=== PATIENT | male | born 1980 | race Two or more races ===

== ENCOUNTER 2017-04-08 08:16 | Inpatient (IN) | payer SELFPAY ==
[~2017-04-08] VITALS: Ht 157.5 cm; Wt 59.4 kg
[2017-04-08] MEDS ORDERED: FAMOTIDINE 20 MG/2 ML VIAL IVP ONE (08:45)
[2017-04-08] MEDS ORDERED: ONDANSETRON PF 4 MG/2 ML VIAL. IV ONE (08:45)
[2017-04-08] MEDS ORDERED: DICYCLOMINE HCL 10 MG CAPSULE PO ONE (08:45)
[2017-04-08] MEDS ORDERED: KETOROLAC 30 MG/ML INJ. IV ONE (08:45)
[2017-04-08] MEDS ORDERED: IV NORMAL SALINE 1000ML BAG 1,000 ML IV ONE ×2 (08:45→11:00)
--- NOTE | 2017-04-08 08:45 | PHYS DOC ---
Adult General Chief Complaint Chief Complaint: ABDOMINAL PAIN HPI HPI Patient is a 36 year old Bangladeshi-speaking male who presents with lower abdominal pain rated at 9 out of 10, constant in nature that began yesterday. Patient is also complaining of diarrhea. Denies any fever. Denies any melena, nausea or vomiting. Denies any sick contacts at home. Denies any hematuria urgency frequency dysuria. Patient states the pain is so severe he is not able to climb into bed. His friend had to get him into bed. 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 Review of Systems Review of Systems Constitutional: Denies fever or chills [] Eyes: Denies change in visual acuity, redness, or eye pain [] HENT: Denies nasal congestion or sore throat [] Respiratory: Denies cough or shortness of breath [] Cardiovascular: No additional information not addressed in HPI [] GI: lower abdominal pain with diarrhea,denies nausea, vomiting : Denies dysuria or hematuria [] Musculoskeletal: Denies back pain or joint pain [] Integument: Denies rash or skin lesions [] Neurologic: Denies headache, focal weakness or sensory changes [] All other systems were reviewed and found to be within normal limits, except as documented in this note. Current Medications Current Medications Current Medications Medications (Trade) Dose Ordered Sig/Modesta Start Time Stop Time Status Last Admin Dose Admin Dicyclomine HCl (Bentyl) 20 mg 1X ONCE 04/08/17 08:45 04/08/17 08:52 DC 04/08/17 09:01 20 MG Famotidine (Pepcid Vial) 20 mg 1X ONCE 04/08/17 08:45 04/08/17 08:52 DC 04/08/17 09:00 20 MG Info (Do NOT chart on this entry -- for MONITORING) 1 each PRN DAILY PRN 04/08/17 10:15 04/10/17 10:14 Iohexol (Omnipaque 300 Mg/ml) 75 ml 1X ONCE 04/08/17 10:00 04/08/17 10:01 DC 04/08/17 10:08 75 ML Ketorolac Tromethamine (Toradol) 30 mg 1X ONCE 04/08/17 08:45 04/08/17 08:52 DC 04/08/17 09:00 30 MG Morphine Sulfate 5 mg 1X ONCE 04/08/17 11:00 04/08/17 11:01 DC Ondansetron HCl (Zofran) 4 mg 1X ONCE 04/08/17 08:45 04/08/17 08:52 DC 04/08/17 09:01 4 MG Piperacillin Sod/ Tazobactam Sod (Zosyn) 3.375 gm 1X ONCE 04/08/17 11:30 04/08/17 11:31 Piperacillin Sod/ Tazobactam Sod 3.375 gm/Dextrose 50 ml @ 100 mls/hr 1X ONCE 04/08/17 11:00 04/08/17 11:29 UNV Sodium Chloride 1,000 ml @ 125 mls/hr 1X ONCE 04/08/17 11:00 04/08/17 18:59 Allergies Allergies Allergies Coded Allergies Type Severity Reaction Last Updated Verified No Known Drug Allergies 04/08/17 No Physical Exam Physical Exam Constitutional: Well developed, well nourished, no acute distress, non-toxic appearance. [] HENT: Normocephalic, atraumatic, bilateral external ears normal, oropharynx moist, no oral exudates, nose normal. [] Eyes: PERRLA, EOMI, conjunctiva normal, no discharge. [] Neck: Normal range of motion, no tenderness, supple, no stridor. [] Cardiovascular:Heart rate regular rhythm, no murmur [] Lungs & Thorax: Bilateral breath sounds clear to auscultation [] Abdomen: Bowel sounds normal, soft, moderate tenderness to bilateral lower abdomen worse on the right lower quadrant and mid abdomen. Positive psoas sign. Positive obturator sign. Patient is guarding the lower abdomen. No right upper quadrant tenderness., no masses, no pulsatile masses. [] Skin: Warm, dry, no erythema, no rash. [] Back: No tenderness, no CVA tenderness. [] Extremities: No tenderness, no cyanosis, no clubbing, ROM intact, no edema. [] Neurologic: Alert and oriented X 3, normal motor function, normal sensory function, no focal deficits noted. [] Psychologic: Affect normal, judgement normal, mood normal. [] Current Patient Data Vital Signs Vital Signs Date Time Temp Pulse Resp B/P (MAP) Pulse Ox O2 Delivery O2 Flow Rate FiO2 04/08/17 09:45 66 20 116/67 (83) 98 Room Air 04/08/17 08:42 99.5 99.5 Lab Values Laboratory Tests Test 04/08/17 08:28 04/08/17 08:53 Urine Collection Type Unknown Urine Color Yellow Urine Clarity Clear Urine pH 7.0 Urine Specific [place] >=1.030 Urine Protein 30 mg/dL (NEG-TRACE) Urine Glucose (UA) Negative mg/dL (NEG) Urine Ketones (Stick) Negative mg/dL (NEG) Urine Blood Negative (NEG) Urine Nitrite Negative (NEG) Urine Bilirubin Negative (NEG) Urine Urobilinogen Dipstick 0.2 mg/dL (0.2 mg/dL) Urine Leukocyte Esterase Negative (NEG) Urine RBC 0 /HPF (0-2) Urine WBC 0 /HPF (0-4) Urine Bacteria Few /HPF (0-FEW) Urine Mucus Marked /LPF Urine Opiates Screen Neg (NEG) Urine Methadone Screen Neg (NEG) Urine Barbiturates Neg (NEG) Urine Phencyclidine Screen Neg (NEG) Urine Amphetamine/Methamphetamine Neg (NEG) Urine Benzodiazepines Screen Neg (NEG) Urine Cocaine Screen Neg (NEG) Urine Cannabinoids Screen Neg (NEG) Urine Ethyl Alcohol Neg (NEG) White Blood Count 17.4 x10^3/uL (4.0-11.0) H Red Blood Count 5.34 x10^6/uL (4.30-5.70) Hemoglobin 16.3 g/dL (13.0-17.5) Hematocrit 48.7 % (39.0-53.0) Mean Corpuscular Volume 91 fL (79-100) Mean Corpuscular Hemoglobin 31 pg (25-35) Mean Corpuscular Hemoglobin Concent 34 g/dL (31-37) Red Cell Distribution Width 12.9 % (11.5-14.5) Platelet Count 222 x10^3/uL (140-400) Neutrophils (%) (Auto) 81 % (31-73) H Lymphocytes (%) (Auto) 10 % (24-48) L Monocytes (%) (Auto) 9 % (0-9) Eosinophils (%) (Auto) 0 % (0-3) Basophils (%) (Auto) 1 % (0-3) Neutrophils # (Auto) 14.1 x10^3uL (1.8-7.7) H Lymphocytes # (Auto) 1.7 x10^3/uL (1.0-4.8) Monocytes # (Auto) 1.5 x10^3/uL (0.0-1.1) H Eosinophils # (Auto) 0.1 x10^3/uL (0.0-0.7) Basophils # (Auto) 0.1 x10^3/uL (0.0-0.2) Segmented Neutrophils % 75 % (35-66) H Band Neutrophils % 6 % (0-9) Lymphocytes % 11 % (24-48) L Monocytes % 8 % (0-10) Platelet Estimate Adequate (ADEQUATE) Large Platelets Few Sodium Level 138 mmol/L (136-145) Potassium Level 3.8 mmol/L (3.5-5.1) Chloride Level 99 mmol/L (98-107) Carbon Dioxide Level 24 mmol/L (21-32) Anion Gap 15 (6-14) H Blood Urea Nitrogen 18 mg/dL (8-26) Creatinine 0.7 mg/dL (0.7-1.3) Estimated GFR (Cockcroft-Gault) 128.3 BUN/Creatinine Ratio 26 (6-20) H Glucose Level 116 mg/dL (70-99) H Calcium Level 8.9 mg/dL (8.5-10.1) Total Bilirubin 1.7 mg/dL (0.2-1.0) H Aspartate Amino Transferase (AST) 22 U/L (15-37) Alanine Aminotransferase (ALT) 36 U/L (16-63) Alkaline Phosphatase 138 U/L (46-116) H Total Protein 8.6 g/dL (6.4-8.2) H Albumin 4.1 g/dL (3.4-5.0) Albumin/Globulin Ratio 0.9 (1.0-1.7) L Lipase 89 U/L (73-393) Ethyl Alcohol Level < 10 mg/dL (0-10) Laboratory Tests 04/08/17 08:53 Laboratory Tests 04/08/17 08:53 EKG EKG [] Radiology/Procedures Radiology/Procedures []PROCEDURE: CT ABD PELV W/ IV CONTRST ONLY CT of the abdomen and pelvis with contrast, 04/08/2017: History: Abdominal pain Multidetector CT imaging was performed following an IV bolus injection of iodinated contrast material. No oral contrast material was administered for this study. No hepatic abnormality is seen. The gallbladder is unremarkable. The pancreas shows no abnormality. The spleen is of normal size. No renal or adrenal abnormality is detected. There is a 3.4 cm fluid collection containing several air bubbles in the upper pelvis on the right. It appears to be contiguous with the lower end of the appendix which contains an 8 mm appendicolith. From the level of the appendicolith to the base of the cecum the presumed appendix measures 9 to 10 mm in width. There is mild adjacent streaky increased density in the mesentery compatible with inflammation and fluid. There is a tiny amount of free fluid in the deep pelvis. The appearance is that of acute appendicitis with probable rupture and developing abscess. The bowel loops are not dilated. No free air is evident in the abdomen or pelvis. IMPRESSION: Acute appendicitis with an appendicolith and probable rupture as described above. PQRS Compliance Statement: One or more of the following individualized dose reduction techniques were utilized for this examination: 1. Automated exposure control 2. Adjustment of the mA and/or kV according to patient size 3. Use of iterative reconstruction technique DICTATED and SIGNED BY: TIMA LI MD DATE: 04/08/17 1022 CC: FAUSTINA OWEN APRN; NO PCP; NON,STAFF ~ Course & Med Decision Making Course & Med Decision Making Pertinent Labs and Imaging studies reviewed. (See chart for details) This is a 36-year-old male patient presented to the ED today with lower abdominal pain with slight diarrhea that began yesterday. CBC with a WBC of 17.4 and a left shift. CMP with bilirubin 1.7, alkaline phosphatase of 138. CT of the abdomen and pelvic with IV contrast was noted for acute appendicitis with probable rupture and developing abscess. 10:[address] Wallace who requested we start patient on antibiotics, consult [facility] for admission. Patient was started on Zosyn and Continued IV 11:[address] Mccabe who accepted patient for admission. Patient given results using accredited legal secretary line. He was stable upon admission. Dragon Disclaimer Dragon Disclaimer This electronic medical record was generated, in whole or in part, using a voice recognition dictation system. Departure Departure Impression: Primary Impression: Acute appendicitis with rupture Disposition: ADMITTED INPATIENT Condition: STABLE FAUSTINA OWEN APRN Apr 08, 2017 08:45
[2017-04-08 08:59] LABS: BASO # 0.1 x10^3/uL (0.0-0.2); BASO % 1 % (0-3); EOS % 0 % (0-3); HEMATOCRIT 48.7 % (39.0-53.0); HEMOGLOBIN 16.3 g/dL (13.0-17.5); LYMPH # 1.7 x10^3/uL (1.0-4.8); LYMPH % 10 % (24-48); MEAN CORPUSCULAR HEMOGLOBIN 31 pg (25-35); MEAN CORPUSCULAR HGB CONC 34 g/dL (31-37); MEAN CORPUSCULAR VOLUME 91 fL (79-100); MONO % 9 % (0-9); NEUT % 81 % (31-73); PLATELET COUNT 222 x10^3/uL (140-400); RED BLOOD COUNT 5.34 x10^6/uL (4.30-5.70); RED CELL DISTRIBUTION WIDTH 12.9 % (11.5-14.5); WHITE BLOOD COUNT 17.4 x10^3/uL (4.0-11.0)
[2017-04-08 09:00] LABS: BILIRUBIN,URINE NEGATIVE (NEG); GLUCOSE,URINE NEGATIVE (NEG); NITRITE,URINE NEGATIVE (NEG); PROTEIN,URINE 30 mg/dL (NEG-TRACE); UROBILINOGEN,URINE 0.2 mg/dL (0.2 mg/dL)
[2017-04-08 09:03] LABS: BARBITURATES NEG (NEG); BENZODIAZEPINES NEG (NEG); CANNABINOIDS NEG (NEG); COCAINE NEG (NEG); METHADONE NEG (NEG); OPIATES NEG (NEG); PHENCYCLIDINE NEG (NEG)
[2017-04-08 09:12] LABS: BACTERIA,URINE FEW /HPF (0-FEW); RBC,URINE 0 /HPF (0-2); WBC,URINE 0 /HPF (0-4)
[2017-04-08 09:13] LABS: CALCIUM 8.9 mg/dL (8.5-10.1); CREATININE 0.7 mg/dL (0.7-1.3); GFR 128.3; POTASSIUM 3.8 mmol/L (3.5-5.1)
[2017-04-08 09:19] LABS: ALBUMIN 4.1 g/dL (3.4-5.0); ALBUMIN/GLOBULIN RATIO 0.9 (1.0-1.7); TOTAL BILIRUBIN 1.7 mg/dL (0.2-1.0); TOTAL PROTEIN 8.6 g/dL (6.4-8.2)
[2017-04-08 09:38] LABS: PLT ESTIMATE ADEQUATE (ADEQUATE)
[2017-04-08] MEDS ORDERED: IOHEXOL 300 MG/ML 100ML VIAL. IV ONE (10:00)
[2017-04-08] MEDS ORDERED: CONTRAST GIVEN MC PRN (10:15)
--- NOTE | 2017-04-08 10:37 | RAD ---
CT of the abdomen and pelvis with contrast, 04/08/2017: History: Abdominal pain Multidetector CT imaging was performed following an IV bolus injection of iodinated contrast material. No oral contrast material was administered for this study. No hepatic abnormality is seen. The gallbladder is unremarkable. The pancreas shows no abnormality. The spleen is of normal size. No renal or adrenal abnormality is detected. There is a 3.4 cm fluid collection containing several air bubbles in the upper pelvis on the right. It appears to be contiguous with the lower end of the appendix which contains an 8 mm appendicolith. From the level of the appendicolith to the base of the cecum the presumed appendix measures 9 to 10 mm in width. There is mild adjacent streaky increased density in the mesentery compatible with inflammation and fluid. There is a tiny amount of free fluid in the deep pelvis. The appearance is that of acute appendicitis with probable rupture and developing abscess. The bowel loops are not dilated. No free air is evident in the abdomen or pelvis. IMPRESSION: Acute appendicitis with an appendicolith and probable rupture as described above. PQRS Compliance Statement: One or more of the following individualized dose reduction techniques were utilized for this examination: 1. Automated exposure control 2. Adjustment of the mA and/or kV according to patient size 3. Use of iterative reconstruction technique
[2017-04-08] MEDS ORDERED: MORPHINE SULFATE 10 MG/ML VIAL. IV ONE (11:00)
[2017-04-08] MEDS ORDERED: PIPERACILLIN/TAZOBACTAM 3.375 GM in IV DEXTROSE 5% 50 ML IV ONE (11:00)
[2017-04-08] MEDS ORDERED: ONDANSETRON PF 4 MG/2 ML VIAL. IV PRN ×3 (11:30→20:15)
[2017-04-08] MEDS ORDERED: PIPERACILLIN/TAZO IV Push 3.375 GM VIAL. IVP ONE (11:30)
[2017-04-08] MEDS ORDERED: fentaNYL PF VIAL 100 MCG/2 ML VIAL IV PRN ×3 (12:00→19:30)
[2017-04-08] MEDS ORDERED: KETOROLAC 15 MG/ML VIAL. IV PRN (12:00)
--- NOTE | 2017-04-08 12:20 | PDOC2 ---
KARINA JACINTO MISSION ANALYST 04/08/17 1220: CONSULT Date of Consult Date of Consult DATE: 04/08/17 TIME: 12:15 Reason for Consult Reason for Consult: appendicitis Referring Physician Referring Physician: ER Identification/Chief Complaint Chief Complaint abdominal pain Problems: Source Source: Chart review, Patient History of Present Illness Reason for Visit: I spoke with patient via editor map phone. Reports acute onset of RLQ pain last night. Had diarrhea last night. Significant pain, impeding walking, eating, etc. + Chills, no n/v. No similar pain in past Past Medical History Past Medical History no significant medical hx Past Surgical History Past Surgical History: No pertinent history Family History Family History: Other (noncontributory to current illness ) Social History No ALCOHOL: none Drugs: None Lives: with Family Current Problem List Problem List Problems Medical Problems: (1) Acute appendicitis with rupture Status: Acute Current Medications Current Medications Current Medications Famotidine (Pepcid Vial) 20 mg 1X ONCE IVP Last administered on 04/08/17 09: 00; Start 04/08/17 at 08:45; Stop 04/08/17 at 08:52; Status DC Ondansetron HCl (Zofran) 4 mg 1X ONCE IV Last administered on 04/08/17 09:01 ; Start 04/08/17 at 08:45; Stop 04/08/17 at 08:52; Status DC Ketorolac Tromethamine (Toradol) 30 mg 1X ONCE IV Last administered on 09:00; Start 04/08/17 at 08:45; Stop 04/08/17 at 08:52; Status DC Sodium Chloride 1,000 ml @ 1,000 mls/hr 1X ONCE IV Last administered on 04/08 09:00; Start 04/08/17 at 08:45; Stop 04/08/17 at 09:44; Status DC Dicyclomine HCl (Bentyl) 20 mg 1X ONCE PO Last administered on 04/08/17 09: 01; Start 04/08/17 at 08:45; Stop 04/08/17 at 08:52; Status DC Iohexol (Omnipaque 300 Mg/ml) 75 ml 1X ONCE IV Last administered on 10:08; Start 04/08/17 at 10:00; Stop 04/08/17 at 10:01; Status DC Info (Do NOT chart on this entry -- for MONITORING) 1 each PRN DAILY PRN MC SEE COMMENTS; Start 04/08/17 at 10:15; Stop 04/10/17 at 10:14 Morphine Sulfate 5 mg 1X ONCE IV Last administered on 04/08/17 11:26; Start 04/08/17 at 11:00; Stop 04/08/17 at 11:01; Status DC Piperacillin Sod/ Tazobactam Sod 3.375 gm/Dextrose 50 ml @ 100 mls/hr 1X ONCE IV ; Start 04/08/17 at 11:00; Stop 04/08/17 at 11:29; Status UNV Sodium Chloride 1,000 ml @ 125 mls/hr 1X ONCE IV Last administered on 11:28; Start 04/08/17 at 11:00; Stop 04/08/17 at 18:59 Piperacillin Sod/ Tazobactam Sod (Zosyn) 3.375 gm 1X ONCE IVP Last administered on 04/08/17 11:29; Start 04/08/17 at 11:30; Stop 04/08/17 at 11 :31; Status DC Ondansetron HCl (Zofran) 4 mg PRN Q8HRS PRN IV NAUSEA/VOMITING; Start at 11:30; Stop 04/09/17 at 11:29 Morphine Sulfate 4 mg PRN Q2HR PRN IV PAIN; Start 04/08/17 at 11:30; Stop at 11:29 Piperacillin Sod/ Tazobactam Sod 4.5 gm/Dextrose 100 ml @ 200 mls/hr Q8HRS IV ; Start 04/08/17 at 14:00; Status UNV Fentanyl Citrate (Fentanyl 2ml Vial) 50 mcg Q2HR PRN IV pain; Start 04/08/17 at 12:00 Ketorolac Tromethamine (Toradol) 15 mg Q6HRS PRN IV pain; Start 04/08/17 at 12 :00; Stop 04/13/17 at 11:59 Acetaminophen (Tylenol) 650 mg TID PO ; Start 04/08/17 at 14:00; Stop at 09:00 Piperacillin Sod/ Tazobactam Sod (Zosyn) 3.375 gm Q6HRS IVP ; Start 04/08/17 at 18:00 Allergies Allergies: Coded Allergies: No Known Drug Allergies (Unverified , 04/08/17) ROS General: YES: Chills, Fatigue PSYCHOLOGICAL ROS: No: Anxiety, Depression Eyes: No Blurry vision, No Double vision HEENT: No: Heacaches, Sore Throat Hematological and Lymphatic: No: Bleeding Problems, Blood Clots Respiratory: No: Cough, Shortness of breath Cardiovascular: No Chest Pain, No Palpitations Gastrointestinal: Yes Other (see hpi) Genitourinary: No Dysuria, No Hematuria Musculoskeletal: No Joint Pain, No Muscle Pain Neurological: No Confusion, No Numbness/Tingling Skin: No Pruritus, No Rash Physical Exam General: Alert, Other (acutely ill appearing, active chills under exam) HEENT: PERRLA, Mucous membr. moist/pink Lungs: Clear to auscultation, Normal air movement Heart: Regular rate, Normal S1, Normal S2, No murmurs Abdomen: Soft, Other (severe ttp to RLQ, + rebound and guarding ) Extremities: No clubbing, No cyanosis Skin: No rashes, No breakdown Neuro: Normal gait, Normal speech Psych/Mental Status: Mental status NL, Mood NL MUSCULOSKELETAL: No deformity, No swelling Vitals VITALS Vital Signs Date Time Temp Pulse Resp B/P (MAP) Pulse Ox O2 Delivery O2 Flow Rate FiO2 04/08/17 11:26 Room Air 04/08/17 11:16 74 120/73 (89) 99 04/08/17 09:45 20 04/08/17 08:42 99.5 99.5 Labs Labs Laboratory Tests Test 04/08/17 08:28 04/08/17 08:53 Urine Collection Type Unknown Urine Color Yellow Urine Clarity Clear Urine pH 7.0 Urine Specific [place] >=1.030 Urine Protein 30 mg/dL (NEG-TRACE) Urine Glucose (UA) Negative mg/dL (NEG) Urine Ketones (Stick) Negative mg/dL (NEG) Urine Blood Negative (NEG) Urine Nitrite Negative (NEG) Urine Bilirubin Negative (NEG) Urine Urobilinogen Dipstick 0.2 mg/dL (0.2 mg/dL) Urine Leukocyte Esterase Negative (NEG) Urine RBC 0 /HPF (0-2) Urine WBC 0 /HPF (0-4) Urine Bacteria Few /HPF (0-FEW) Urine Mucus Marked /LPF Urine Opiates Screen Neg (NEG) Urine Methadone Screen Neg (NEG) Urine Barbiturates Neg (NEG) Urine Phencyclidine Screen Neg (NEG) Urine Amphetamine/Methamphetamine Neg (NEG) Urine Benzodiazepines Screen Neg (NEG) Urine Cocaine Screen Neg (NEG) Urine Cannabinoids Screen Neg (NEG) Urine Ethyl Alcohol Neg (NEG) White Blood Count 17.4 x10^3/uL (4.0-11.0) Red Blood Count 5.34 x10^6/uL (4.30-5.70) Hemoglobin 16.3 g/dL (13.0-17.5) Hematocrit 48.7 % (39.0-53.0) Mean Corpuscular Volume 91 fL (79-100) Mean Corpuscular Hemoglobin 31 pg (25-35) Mean Corpuscular Hemoglobin Concent 34 g/dL (31-37) Red Cell Distribution Width 12.9 % (11.5-14.5) Platelet Count 222 x10^3/uL (140-400) Neutrophils (%) (Auto) 81 % (31-73) Lymphocytes (%) (Auto) 10 % (24-48) Monocytes (%) (Auto) 9 % (0-9) Eosinophils (%) (Auto) 0 % (0-3) Basophils (%) (Auto) 1 % (0-3) Neutrophils # (Auto) 14.1 x10^3uL (1.8-7.7) Lymphocytes # (Auto) 1.7 x10^3/uL (1.0-4.8) Monocytes # (Auto) 1.5 x10^3/uL (0.0-1.1) Eosinophils # (Auto) 0.1 x10^3/uL (0.0-0.7) Basophils # (Auto) 0.1 x10^3/uL (0.0-0.2) Segmented Neutrophils % 75 % (35-66) Band Neutrophils % 6 % (0-9) Lymphocytes % 11 % (24-48) Monocytes % 8 % (0-10) Platelet Estimate Adequate (ADEQUATE) Large Platelets Few Sodium Level 138 mmol/L (136-145) Potassium Level 3.8 mmol/L (3.5-5.1) Chloride Level 99 mmol/L (98-107) Carbon Dioxide Level 24 mmol/L (21-32) Anion Gap 15 (6-14) Blood Urea Nitrogen 18 mg/dL (8-26) Creatinine 0.7 mg/dL (0.7-1.3) Estimated GFR (Cockcroft-Gault) 128.3 BUN/Creatinine Ratio 26 (6-20) Glucose Level 116 mg/dL (70-99) Calcium Level 8.9 mg/dL (8.5-10.1) Total Bilirubin 1.7 mg/dL (0.2-1.0) Aspartate Amino Transf (AST/SGOT) 22 U/L (15-37) Alanine Aminotransferase (ALT/SGPT) 36 U/L (16-63) Alkaline Phosphatase 138 U/L (46-116) Total Protein 8.6 g/dL (6.4-8.2) Albumin 4.1 g/dL (3.4-5.0) Albumin/Globulin Ratio 0.9 (1.0-1.7) Lipase 89 U/L (73-393) Ethyl Alcohol Level < 10 mg/dL (0-10) Laboratory Tests Test 04/08/17 08:28 04/08/17 08:53 Urine Collection Type Unknown Urine Color Yellow Urine Clarity Clear Urine pH 7.0 Urine Specific [place] >=1.030 Urine Protein 30 mg/dL (NEG-TRACE) Urine Glucose (UA) Negative mg/dL (NEG) Urine Ketones (Stick) Negative mg/dL (NEG) Urine Blood Negative (NEG) Urine Nitrite Negative (NEG) Urine Bilirubin Negative (NEG) Urine Urobilinogen Dipstick 0.2 mg/dL (0.2 mg/dL) Urine Leukocyte Esterase Negative (NEG) Urine RBC 0 /HPF (0-2) Urine WBC 0 /HPF (0-4) Urine Bacteria Few /HPF (0-FEW) Urine Mucus Marked /LPF Urine Opiates Screen Neg (NEG) Urine Methadone Screen Neg (NEG) Urine Barbiturates Neg (NEG) Urine Phencyclidine Screen Neg (NEG) Urine Amphetamine/Methamphetamine Neg (NEG) Urine Benzodiazepines Screen Neg (NEG) Urine Cocaine Screen Neg (NEG) Urine Cannabinoids Screen Neg (NEG) Urine Ethyl Alcohol Neg (NEG) White Blood Count 17.4 x10^3/uL (4.0-11.0) Red Blood Count 5.34 x10^6/uL (4.30-5.70) Hemoglobin 16.3 g/dL (13.0-17.5) Hematocrit 48.7 % (39.0-53.0) Mean Corpuscular Volume 91 fL (79-100) Mean Corpuscular Hemoglobin 31 pg (25-35) Mean Corpuscular Hemoglobin Concent 34 g/dL (31-37) Red Cell Distribution Width 12.9 % (11.5-14.5) Platelet Count 222 x10^3/uL (140-400) Neutrophils (%) (Auto) 81 % (31-73) Lymphocytes (%) (Auto) 10 % (24-48) Monocytes (%) (Auto) 9 % (0-9) Eosinophils (%) (Auto) 0 % (0-3) Basophils (%) (Auto) 1 % (0-3) Neutrophils # (Auto) 14.1 x10^3uL (1.8-7.7) Lymphocytes # (Auto) 1.7 x10^3/uL (1.0-4.8) Monocytes # (Auto) 1.5 x10^3/uL (0.0-1.1) Eosinophils # (Auto) 0.1 x10^3/uL (0.0-0.7) Basophils # (Auto) 0.1 x10^3/uL (0.0-0.2) Segmented Neutrophils % 75 % (35-66) Band Neutrophils % 6 % (0-9) Lymphocytes % 11 % (24-48) Monocytes % 8 % (0-10) Platelet Estimate Adequate (ADEQUATE) Large Platelets Few Sodium Level 138 mmol/L (136-145) Potassium Level 3.8 mmol/L (3.5-5.1) Chloride Level 99 mmol/L (98-107) Carbon Dioxide Level 24 mmol/L (21-32) Anion Gap 15 (6-14) Blood Urea Nitrogen 18 mg/dL (8-26) Creatinine 0.7 mg/dL (0.7-1.3) Estimated GFR (Cockcroft-Gault) 128.3 BUN/Creatinine Ratio 26 (6-20) Glucose Level 116 mg/dL (70-99) Calcium Level 8.9 mg/dL (8.5-10.1) Total Bilirubin 1.7 mg/dL (0.2-1.0) Aspartate Amino Transf (AST/SGOT) 22 U/L (15-37) Alanine Aminotransferase (ALT/SGPT) 36 U/L (16-63) Alkaline Phosphatase 138 U/L (46-116) Total Protein 8.6 g/dL (6.4-8.2) Albumin 4.1 g/dL (3.4-5.0) Albumin/Globulin Ratio 0.9 (1.0-1.7) Lipase 89 U/L (73-393) Ethyl Alcohol Level < 10 mg/dL (0-10) Assessment/Plan Assessment/Plan ruptured appendicitis significant exam findings start IV abx, NPO I reviewed with Dr Wallace who will see patient today BERTHA WALLACE MD 04/08/17 4179: CONSULT Allergies Allergies: Coded Allergies: No Known Drug Allergies (Unverified , 04/08/17) Assessment/Plan Assessment/Plan Pt seen and examined. Agree with Ms. Jacinto's note Pt with TTP RUQ and RLQ, with peritoneal signs treated initially with IV abx and IVF resuscitation TO OR for laparoscopic versus open appendectomy d/w pt and pt's family high likely perforated appendix, complicated appendicitis with sepsis Thanks for consult! KARINA JACINTO APRN Apr 08, 2017 12:20 BERTHA WALLACE MD Apr 08, 2017 17:53
[2017-04-08 12:45] VITALS: BP 133/79
--- NOTE | 2017-04-08 12:45 | PDOC ---
Infectious Disease Note Vital Sign Vital Signs Vital Signs Date Time Temp Pulse Resp B/P (MAP) Pulse Ox O2 Delivery O2 Flow Rate FiO2 04/08/17 11:46 82 137/81 (99) 98 Room Air 04/08/17 09:45 20 04/08/17 08:42 99.5 99.5 Labs Lab Laboratory Tests Test 04/08/17 08:28 04/08/17 08:53 04/08/17 11:47 Urine Collection Type Unknown Urine Color Yellow Urine Clarity Clear Urine pH 7.0 Urine Specific [place] >=1.030 Urine Protein 30 mg/dL (NEG-TRACE) Urine Glucose (UA) Negative mg/dL (NEG) Urine Ketones (Stick) Negative mg/dL (NEG) Urine Blood Negative (NEG) Urine Nitrite Negative (NEG) Urine Bilirubin Negative (NEG) Urine Urobilinogen Dipstick 0.2 mg/dL (0.2 mg/dL) Urine Leukocyte Esterase Negative (NEG) Urine RBC 0 /HPF (0-2) Urine WBC 0 /HPF (0-4) Urine Bacteria Few /HPF (0-FEW) Urine Mucus Marked /LPF Urine Opiates Screen Neg (NEG) Urine Methadone Screen Neg (NEG) Urine Barbiturates Neg (NEG) Urine Phencyclidine Screen Neg (NEG) Urine Amphetamine/Methamphetamine Neg (NEG) Urine Benzodiazepines Screen Neg (NEG) Urine Cocaine Screen Neg (NEG) Urine Cannabinoids Screen Neg (NEG) Urine Ethyl Alcohol Neg (NEG) White Blood Count 17.4 x10^3/uL (4.0-11.0) Red Blood Count 5.34 x10^6/uL (4.30-5.70) Hemoglobin 16.3 g/dL (13.0-17.5) Hematocrit 48.7 % (39.0-53.0) Mean Corpuscular Volume 91 fL (79-100) Mean Corpuscular Hemoglobin 31 pg (25-35) Mean Corpuscular Hemoglobin Concent 34 g/dL (31-37) Red Cell Distribution Width 12.9 % (11.5-14.5) Platelet Count 222 x10^3/uL (140-400) Neutrophils (%) (Auto) 81 % (31-73) Lymphocytes (%) (Auto) 10 % (24-48) Monocytes (%) (Auto) 9 % (0-9) Eosinophils (%) (Auto) 0 % (0-3) Basophils (%) (Auto) 1 % (0-3) Neutrophils # (Auto) 14.1 x10^3uL (1.8-7.7) Lymphocytes # (Auto) 1.7 x10^3/uL (1.0-4.8) Monocytes # (Auto) 1.5 x10^3/uL (0.0-1.1) Eosinophils # (Auto) 0.1 x10^3/uL (0.0-0.7) Basophils # (Auto) 0.1 x10^3/uL (0.0-0.2) Segmented Neutrophils % 75 % (35-66) Band Neutrophils % 6 % (0-9) Lymphocytes % 11 % (24-48) Monocytes % 8 % (0-10) Platelet Estimate Adequate (ADEQUATE) Large Platelets Few Sodium Level 138 mmol/L (136-145) Potassium Level 3.8 mmol/L (3.5-5.1) Chloride Level 99 mmol/L (98-107) Carbon Dioxide Level 24 mmol/L (21-32) Anion Gap 15 (6-14) Blood Urea Nitrogen 18 mg/dL (8-26) Creatinine 0.7 mg/dL (0.7-1.3) Estimated GFR (Cockcroft-Gault) 128.3 BUN/Creatinine Ratio 26 (6-20) Glucose Level 116 mg/dL (70-99) Calcium Level 8.9 mg/dL (8.5-10.1) Total Bilirubin 1.7 mg/dL (0.2-1.0) Aspartate Amino Transf (AST/SGOT) 22 U/L (15-37) Alanine Aminotransferase (ALT/SGPT) 36 U/L (16-63) Alkaline Phosphatase 138 U/L (46-116) Total Protein 8.6 g/dL (6.4-8.2) Albumin 4.1 g/dL (3.4-5.0) Albumin/Globulin Ratio 0.9 (1.0-1.7) Lipase 89 U/L (73-393) Ethyl Alcohol Level < 10 mg/dL (0-10) Lactic Acid Level 0.9 mmol/L (0.4-2.0) Objective Assessment appendicitis with perforation Plan Plan of Care pt seen, consult dictated, thanks HERNAN WALL MD Apr 08, 2017 12:45
[2017-04-08] MEDS: MORPHINE SULFATE 4 MG/ML DISP.SYRIN. IV PRN ×4 (12:46→21:03)
[2017-04-08 13:00] VITALS: BP 142/80
[2017-04-08 14:00] VITALS: BP 140/69
[2017-04-08] MEDS ORDERED: PIPERACILLIN/TAZOBACTAM 4.5 GM in IV DEXTROSE 5% 100 ML IV SCH (14:00)
[2017-04-08] MEDS: ACETAMINOPHEN 325 MG TABLET. PO SCH ×2 (14:00→21:00)
[2017-04-08] MEDS: POTASSIUM CL 20MEQ D5-0.45NACL 1,000 ML IV SCH (14:51)
[2017-04-08 15:00] VITALS: BP 115/63
--- NOTE | 2017-04-08 15:07 | PDOC1 ---
History and Physical Date of Admission Date of Admission DATE: 04/08/17 TIME: 15:03 Identification/Chief Complaint Chief Complaint acute abd pain Problems: Source Source: Chart review, Patient History of Present Illness History of Present Illness Les ruffin 36 year old Hebrew-speaking male admit with acute lower abdominal pain rated at 9 out of 10, constant in nature that began last night. no nausea or vomiting, but some diarrhea X1 . Denies any fever. Denies any melena, nausea or vomiting. Denies any sick contacts or travel pain is tolerable unless he has to move, pain 10,10 if he has to sit up, Hi Past Medical History Cardiovascular: No pertinent hx Pulmonary: No pertinent hx GI: No pertinent hx Heme/Onc: No pertinent hx Hepatobiliary: No pertinent hx Psych: No pertinent hx ENT: No pertinent hx Renal/: No pertinent hx Past Surgical History Past Surgical History: No pertinent history Family History Family History: No Significant, Other (noncontributory to current illness ) Social History Smoke: No ALCOHOL: none Drugs: None Current Problem List Problem List Problems Medical Problems: (1) Acute appendicitis with rupture Status: Acute Problems: Current Medications Current Medications Current Medications Famotidine (Pepcid Vial) 20 mg 1X ONCE IVP Last administered on 04/08/17 09: 00; Start 04/08/17 at 08:45; Stop 04/08/17 at 08:52; Status DC Ondansetron HCl (Zofran) 4 mg 1X ONCE IV Last administered on 04/08/17 09:01 ; Start 04/08/17 at 08:45; Stop 04/08/17 at 08:52; Status DC Ketorolac Tromethamine (Toradol) 30 mg 1X ONCE IV Last administered on 09:00; Start 04/08/17 at 08:45; Stop 04/08/17 at 08:52; Status DC Sodium Chloride 1,000 ml @ 1,000 mls/hr 1X ONCE IV Last administered on 04/08 09:00; Start 04/08/17 at 08:45; Stop 04/08/17 at 09:44; Status DC Dicyclomine HCl (Bentyl) 20 mg 1X ONCE PO Last administered on 04/08/17 09: 01; Start 04/08/17 at 08:45; Stop 04/08/17 at 08:52; Status DC Iohexol (Omnipaque 300 Mg/ml) 75 ml 1X ONCE IV Last administered on 10:08; Start 04/08/17 at 10:00; Stop 04/08/17 at 10:01; Status DC Info (Do NOT chart on this entry -- for MONITORING) 1 each PRN DAILY PRN MC SEE COMMENTS; Start 04/08/17 at 10:15; Stop 04/10/17 at 10:14 Morphine Sulfate 5 mg 1X ONCE IV Last administered on 04/08/17 11:26; Start 04/08/17 at 11:00; Stop 04/08/17 at 11:01; Status DC Piperacillin Sod/ Tazobactam Sod 3.375 gm/Dextrose 50 ml @ 100 mls/hr 1X ONCE IV ; Start 04/08/17 at 11:00; Stop 04/08/17 at 11:29; Status UNV Sodium Chloride 1,000 ml @ 125 mls/hr 1X ONCE IV Last administered on 11:28; Start 04/08/17 at 11:00; Stop 04/08/17 at 18:59 Piperacillin Sod/ Tazobactam Sod (Zosyn) 3.375 gm 1X ONCE IVP Last administered on 04/08/17 11:29; Start 04/08/17 at 11:30; Stop 04/08/17 at 11 :31; Status DC Ondansetron HCl (Zofran) 4 mg PRN Q8HRS PRN IV NAUSEA/VOMITING Last administered on 04/08/17 14:50; Start 04/08/17 at 11:30; Stop 04/09/17 at 11 :29 Morphine Sulfate 4 mg PRN Q2HR PRN IV PAIN Last administered on 04/08/17 14: 50; Start 04/08/17 at 11:30; Stop 04/09/17 at 11:29 Piperacillin Sod/ Tazobactam Sod 4.5 gm/Dextrose 100 ml @ 200 mls/hr Q8HRS IV ; Start 04/08/17 at 14:00; Status UNV Fentanyl Citrate (Fentanyl 2ml Vial) 50 mcg Q2HR PRN IV pain; Start 04/08/17 at 12:00 Ketorolac Tromethamine (Toradol) 15 mg Q6HRS PRN IV pain; Start 04/08/17 at 12 :00; Stop 04/13/17 at 11:59 Acetaminophen (Tylenol) 650 mg TID PO ; Start 04/08/17 at 14:00; Stop at 09:00 Piperacillin Sod/ Tazobactam Sod (Zosyn) 3.375 gm Q6HRS IVP ; Start 04/08/17 at 18:00 Potassium Chloride/Dextrose/ Sod Cl 1,000 ml @ 125 mls/hr Q8H IV Last administered on 04/08/17t 14:51; Start 04/08/17 at 14:30 Allergies Allergies: Coded Allergies: No Known Drug Allergies (Unverified , 04/08/17) ROS General: No: Chills, Night Sweats, Fatigue, Malaise, Appetite, Other PSYCHOLOGICAL ROS: No: Anxiety, Behavioral Disorder, Concentration difficultie , Decreased libido, Depression, Disorientation, Hallucinations, Hostility, Irritablity, Memory difficulties, Mood Swings, Obsessive thoughts, Physical abuse, Sexual abuse, Sleep disturbances, Suicidal ideation, Other Eyes: No Blurry vision, No Decreased vision, No Double vision, No Dry eyes, No Excessive tearing, No Eye Pain, No Itchy Eyes, No Loss of vision, No Photophobia , No Scotomata, No Uses contacts, No Uses glasses, No Other HEENT: No: Heacaches, Visual Changes, Hearing change, Nasal congestion, Nasal discharge, Oral lesions, Sinus pain, Sore Throat, Epistaxis, Sneezing, Snoring, Tinnitus, Vertigo, Vocal changes, Other Respiratory: No: Cough, Hemoptysis, Orthopnea, Pleuritic Pain, Shortness of breath, SOB with excertion, Sputum Changes, Stridor, Tachypnea, Wheezing, Other Cardiovascular: No Chest Pain, No Palpitations, No Orthopnea, No Paroxysmal Noc. Dyspnea, No Edema, No Lt Headedness, No Other Gastrointestinal: Yes Nausea, Yes Abdominal Pain Genitourinary: No Dysuria, No Frequency, No Incontinence, No Hematuria, No Retention, No Discharge, No Urgency, No Pain, No Flank Pain, No Other, No , No , No , No , No , No , No Musculoskeletal: No Gait Disturbance, No Joint Pain, No Joint Stiffness, No Joint Swelling, No Muscle Pain, No Muscular Weakness, No Pain In:, No Swelling In:, No Other Neurological: No Behavorial Changes, No Bowel/Bladder ControlChng, No Confusion , No Dizziness, No Gait Disturbance, No Headaches, No Impaired Coord/balance, No Memory Loss, No Numbness/Tingling, No Seizures, No Speech Problems, No Tremors, No Visual Changes, No Weakness, No Other Skin: No Dry Skin, No Eczema, No Hair Changes, No Lumps, No Mole Changes, No Mottling, No Nail Changes, No Pruritus, No Rash, No Skin Lesion Changes, No Other, No Acne Physical Exam General: Alert, Oriented X3, Cooperative, mild distress HEENT: Atraumatic, PERRLA, EOMI, Mucous membr. moist/pink Lungs: Clear to auscultation Heart: RRR, no gallops, no murmurs Abdomen: Other (very tender, + guarding, pain with me moving the bed) Extremities: No clubbing, No edema Skin: No rashes, No significant lesion Neuro: Sensation intact, Cranial nerves 3-12 NL Psych/Mental Status: Mood NL Vitals Vitals Vital Signs Date Time Temp Pulse Resp B/P (MAP) Pulse Ox O2 Delivery O2 Flow Rate FiO2 04/08/17 14:50 30 98 Room Air 04/08/17 14:00 110 140/69 (92) 04/08/17 13:00 100.7 100.7 Labs Labs Laboratory Tests Test 04/08/17 08:28 04/08/17 08:53 04/08/17 11:47 Urine Collection Type Unknown Urine Color Yellow Urine Clarity Clear Urine pH 7.0 Urine Specific [place] >=1.030 Urine Protein 30 mg/dL (NEG-TRACE) Urine Glucose (UA) Negative mg/dL (NEG) Urine Ketones (Stick) Negative mg/dL (NEG) Urine Blood Negative (NEG) Urine Nitrite Negative (NEG) Urine Bilirubin Negative (NEG) Urine Urobilinogen Dipstick 0.2 mg/dL (0.2 mg/dL) Urine Leukocyte Esterase Negative (NEG) Urine RBC 0 /HPF (0-2) Urine WBC 0 /HPF (0-4) Urine Bacteria Few /HPF (0-FEW) Urine Mucus Marked /LPF Urine Opiates Screen Neg (NEG) Urine Methadone Screen Neg (NEG) Urine Barbiturates Neg (NEG) Urine Phencyclidine Screen Neg (NEG) Urine Amphetamine/Methamphetamine Neg (NEG) Urine Benzodiazepines Screen Neg (NEG) Urine Cocaine Screen Neg (NEG) Urine Cannabinoids Screen Neg (NEG) Urine Ethyl Alcohol Neg (NEG) White Blood Count 17.4 x10^3/uL (4.0-11.0) Red Blood Count 5.34 x10^6/uL (4.30-5.70) Hemoglobin 16.3 g/dL (13.0-17.5) Hematocrit 48.7 % (39.0-53.0) Mean Corpuscular Volume 91 fL (79-100) Mean Corpuscular Hemoglobin 31 pg (25-35) Mean Corpuscular Hemoglobin Concent 34 g/dL (31-37) Red Cell Distribution Width 12.9 % (11.5-14.5) Platelet Count 222 x10^3/uL (140-400) Neutrophils (%) (Auto) 81 % (31-73) Lymphocytes (%) (Auto) 10 % (24-48) Monocytes (%) (Auto) 9 % (0-9) Eosinophils (%) (Auto) 0 % (0-3) Basophils (%) (Auto) 1 % (0-3) Neutrophils # (Auto) 14.1 x10^3uL (1.8-7.7) Lymphocytes # (Auto) 1.7 x10^3/uL (1.0-4.8) Monocytes # (Auto) 1.5 x10^3/uL (0.0-1.1) Eosinophils # (Auto) 0.1 x10^3/uL (0.0-0.7) Basophils # (Auto) 0.1 x10^3/uL (0.0-0.2) Segmented Neutrophils % 75 % (35-66) Band Neutrophils % 6 % (0-9) Lymphocytes % 11 % (24-48) Monocytes % 8 % (0-10) Platelet Estimate Adequate (ADEQUATE) Large Platelets Few Sodium Level 138 mmol/L (136-145) Potassium Level 3.8 mmol/L (3.5-5.1) Chloride Level 99 mmol/L (98-107) Carbon Dioxide Level 24 mmol/L (21-32) Anion Gap 15 (6-14) Blood Urea Nitrogen 18 mg/dL (8-26) Creatinine 0.7 mg/dL (0.7-1.3) Estimated GFR (Cockcroft-Gault) 128.3 BUN/Creatinine Ratio 26 (6-20) Glucose Level 116 mg/dL (70-99) Calcium Level 8.9 mg/dL (8.5-10.1) Total Bilirubin 1.7 mg/dL (0.2-1.0) Aspartate Amino Transf (AST/SGOT) 22 U/L (15-37) Alanine Aminotransferase (ALT/SGPT) 36 U/L (16-63) Alkaline Phosphatase 138 U/L (46-116) Total Protein 8.6 g/dL (6.4-8.2) Albumin 4.1 g/dL (3.4-5.0) Albumin/Globulin Ratio 0.9 (1.0-1.7) Lipase 89 U/L (73-393) Ethyl Alcohol Level < 10 mg/dL (0-10) Lactic Acid Level 0.9 mmol/L (0.4-2.0) Laboratory Tests Test 04/08/17 08:28 04/08/17 08:53 04/08/17 11:47 Urine Collection Type Unknown Urine Color Yellow Urine Clarity Clear Urine pH 7.0 Urine Specific [place] >=1.030 Urine Protein 30 mg/dL (NEG-TRACE) Urine Glucose (UA) Negative mg/dL (NEG) Urine Ketones (Stick) Negative mg/dL (NEG) Urine Blood Negative (NEG) Urine Nitrite Negative (NEG) Urine Bilirubin Negative (NEG) Urine Urobilinogen Dipstick 0.2 mg/dL (0.2 mg/dL) Urine Leukocyte Esterase Negative (NEG) Urine RBC 0 /HPF (0-2) Urine WBC 0 /HPF (0-4) Urine Bacteria Few /HPF (0-FEW) Urine Mucus Marked /LPF Urine Opiates Screen Neg (NEG) Urine Methadone Screen Neg (NEG) Urine Barbiturates Neg (NEG) Urine Phencyclidine Screen Neg (NEG) Urine Amphetamine/Methamphetamine Neg (NEG) Urine Benzodiazepines Screen Neg (NEG) Urine Cocaine Screen Neg (NEG) Urine Cannabinoids Screen Neg (NEG) Urine Ethyl Alcohol Neg (NEG) White Blood Count 17.4 x10^3/uL (4.0-11.0) Red Blood Count 5.34 x10^6/uL (4.30-5.70) Hemoglobin 16.3 g/dL (13.0-17.5) Hematocrit 48.7 % (39.0-53.0) Mean Corpuscular Volume 91 fL (79-100) Mean Corpuscular Hemoglobin 31 pg (25-35) Mean Corpuscular Hemoglobin Concent 34 g/dL (31-37) Red Cell Distribution Width 12.9 % (11.5-14.5) Platelet Count 222 x10^3/uL (140-400) Neutrophils (%) (Auto) 81 % (31-73) Lymphocytes (%) (Auto) 10 % (24-48) Monocytes (%) (Auto) 9 % (0-9) Eosinophils (%) (Auto) 0 % (0-3) Basophils (%) (Auto) 1 % (0-3) Neutrophils # (Auto) 14.1 x10^3uL (1.8-7.7) Lymphocytes # (Auto) 1.7 x10^3/uL (1.0-4.8) Monocytes # (Auto) 1.5 x10^3/uL (0.0-1.1) Eosinophils # (Auto) 0.1 x10^3/uL (0.0-0.7) Basophils # (Auto) 0.1 x10^3/uL (0.0-0.2) Segmented Neutrophils % 75 % (35-66) Band Neutrophils % 6 % (0-9) Lymphocytes % 11 % (24-48) Monocytes % 8 % (0-10) Platelet Estimate Adequate (ADEQUATE) Large Platelets Few Sodium Level 138 mmol/L (136-145) Potassium Level 3.8 mmol/L (3.5-5.1) Chloride Level 99 mmol/L (98-107) Carbon Dioxide Level 24 mmol/L (21-32) Anion Gap 15 (6-14) Blood Urea Nitrogen 18 mg/dL (8-26) Creatinine 0.7 mg/dL (0.7-1.3) Estimated GFR (Cockcroft-Gault) 128.3 BUN/Creatinine Ratio 26 (6-20) Glucose Level 116 mg/dL (70-99) Calcium Level 8.9 mg/dL (8.5-10.1) Total Bilirubin 1.7 mg/dL (0.2-1.0) Aspartate Amino Transf (AST/SGOT) 22 U/L (15-37) Alanine Aminotransferase (ALT/SGPT) 36 U/L (16-63) Alkaline Phosphatase 138 U/L (46-116) Total Protein 8.6 g/dL (6.4-8.2) Albumin 4.1 g/dL (3.4-5.0) Albumin/Globulin Ratio 0.9 (1.0-1.7) Lipase 89 U/L (73-393) Ethyl Alcohol Level < 10 mg/dL (0-10) Lactic Acid Level 0.9 mmol/L (0.4-2.0) VTE Prophylaxis Ordered VTE Prophylaxis Devices: Yes VTE Pharmacological Prophylaxi: No Assessment/Plan Assessment/Plan acute appendicitis with perforation peritonitis sepsis acute abdominal pain admit, IV abx, ID consult, gen surg consult KARLA JOHNSON MD Apr 08, 2017 15:07
[2017-04-08] MEDS: PIPERACILLIN/TAZO IV Push 3.375 GM VIAL. IVP SCH (17:44)
[2017-04-08] MEDS ORDERED: SEVOFLURANE 61 TO 120 MINUTES. IH ONE ×2 (18:21→19:47)
[2017-04-08] MEDS ORDERED: MIDAZOLAM HCL/PF 2 MG/2 ML VIAL. ONE (18:21)
[2017-04-08] MEDS ORDERED: SUCCINYLCHOLINE 200 MG/10 ML VIAL. ONE (18:21)
[2017-04-08] MEDS ORDERED: fentaNYL PF VIAL 100 MCG/2 ML VIAL ONE ×2 (18:21→20:12)
[2017-04-08] MEDS ORDERED: PROPOFOL 20 ML IV ONE (18:22)
[2017-04-08] MEDS ORDERED: DEXAMETHASONE SOD PHOS 20 MG/5 ML VIAL. ONE (18:22)
[2017-04-08] MEDS ORDERED: LIDOCAINE 2% PF Vial for OR 5 ML VIAL. ONE (18:22)
[2017-04-08] MEDS ORDERED: ONDANSETRON PF 4 MG/2 ML VIAL. ONE (18:22)
[2017-04-08] MEDS ORDERED: NEOSTIGMINE METHYLSULFATE 5 MG/5 ML SYRINGE. ONE (18:22)
[2017-04-08] MEDS ORDERED: GLYCOPYRROLATE 1 MG/5 ML VIAL. ONE (18:22)
[2017-04-08] MEDS ORDERED: ROCURONIUM 50 MG/5 ML VIAL. ONE (18:22)
[2017-04-08] MEDS ORDERED: SURGICEL HEMOSTAT 2X3 EACH. ONE (18:42)
[2017-04-08] MEDS ORDERED: BUPIVAC MPF-EPI 0.5%-1:200000 30 ML VIAL. ONE (18:42)
[2017-04-08 19:00] VITALS: BP 128/61
[2017-04-08] MEDS ORDERED: LIDOCAINE 1% PF 2 ML VIAL. ID PRN (19:30)
[2017-04-08] MEDS ORDERED: PROCHLORPERAZINE 10 MG/2 ML VIAL. IV PRN (19:30)
[2017-04-08] MEDS ORDERED: HYDROmorphone 2 MG/ML VIAL IV PRN (19:30)
[2017-04-08] MEDS ORDERED: MORPHINE SULFATE 2 MG/ML DISP.SYRIN. IV PRN ×2 (19:30→20:15)
[2017-04-08] MEDS ORDERED: IV RINGERS,LACTATED 1000ML 1,000 ML IV SCH ×2 (19:30→20:12)
[2017-04-08] MEDS ORDERED: 0.9 % SODIUM CHLORIDE 10 ML DISP.SYRIN. IV PRN (20:15)
[2017-04-08] MEDS ORDERED: KETOROLAC 30 MG/ML INJ. IV PRN (20:15)
--- NOTE | 2017-04-08 20:41 | PDOC4 ---
OPERATIVE NOTE Date: Date: Apr 08, 2017 Pre-Op Diagnosis: Perforated appendicitis Post-Op Diagnosis: same Procedure Performed: Laparoscopic appendectomy Surgeon: Payam Her Anesthesia Type: GETA plus 0.5% marcaine Blood Loss: 10 Specimans Obtained: appendix Findings: dilated distal appendix, diffuse foul smelling thick fluid Complications: none Operative Note: After obtaining informed consent, patient was taken to the OR, induced under GETA, and prepped in the usual fashion. 5 mm port placed left lower quadrant and suprapubic, with a 12 port placed supraumbilical, all under laparoscopic guidance. Abdominal cavity was explored and noted to have foul smelling diffuse fluid, c/w peritonitis/infection. Appendix identified off the cecum with a viable base. General load COREY taken across the base and a vascular load taken across the mesoappendix. The ileocecal fold was divided between clips to mobilize the appendix. Appendix placed in a bag, delivered and sent to pathology for evaluation. Copious irrigation. No evidence of bleeding or other pathology. Ports removed without bleeding. Fascia repaired with 0 vicryl and skin repaired with 4 0 monocryl. Dressing applied. Patient sent to PACU in a stable condition. All counts were correct. No immediate complications. Wound class is dirty, 4. PAYAM HER MD Apr 08, 2017 20:41
[2017-04-08 21:00] VITALS: BP 110/58
[2017-04-09] VITALS (7 sets, daily range): BP systolic 97–126; BP diastolic 55–70
[2017-04-09] MEDS: PIPERACILLIN/TAZO IV Push 3.375 GM VIAL. IVP SCH ×4 (00:31→18:13)
[2017-04-09] MEDS: MORPHINE SULFATE 4 MG/ML DISP.SYRIN. IV PRN ×3 (00:31→08:03)
[2017-04-09] MEDS: POTASSIUM CL 20MEQ D5-0.45NACL 1,000 ML IV SCH ×4 (00:32→22:30)
--- NOTE | 2017-04-09 01:11 | CONS ---
DATE OF CONSULTATION: 04/08/2017 CONSULTING PHYSICIAN: Dr. Fernando. REASON FOR CONSULTATION: Ruptured appendicitis. HISTORY OF PRESENT ILLNESS: This is a 36-year-old gentleman who came in with right lower quadrant abdominal pain, started last night. The patient did have a slight loose stool, but otherwise no nausea, vomiting or fever. All the communication done through the phone [employer]. The patient denies any chest pain, denies any shortness of breath, denies any headache or visual symptoms. PAST MEDICAL HISTORY: Unremarkable. SOCIAL HISTORY: Negative for smoking, alcohol use or drug use. ALLERGIES: No known drug allergies. CURRENT MEDICATIONS: The patient has been started on Zosyn. REVIEW OF SYSTEMS: As per HPI, all other systems reviewed are negative. PHYSICAL EXAMINATION: GENERAL: Alert, oriented gentleman, not in any distress. VITAL SIGNS: Stable with a T-max 99.5. HEENT: NAD. NECK: Supple, no JVP, no lymphadenopathy. LUNGS: Clear. HEART: S1, S2 regular. ABDOMEN: The patient does have right lower quadrant tenderness. No rebound or guarding. No distention. EXTREMITIES: No edema, cyanosis. SKIN: Unremarkable. NEUROLOGIC: The patient is neurologically intact. LABORATORY DATA: White count is 17.4. BUN and creatinine are normal. Urinalysis unremarkable. Drug screen is negative. CT of the abdomen and pelvis showed acute appendicitis with a rupture. IMPRESSION: 1. Acute appendicitis with rupture and a small abscess. 2. Low-grade fever. 3. Leukocytosis. RECOMMENDATIONS: Agree with continuing Zosyn, supportive care. We will follow the cultures and further management as per Surgery. Thank you very much, Dr. Fernando, for giving me the opportunity to participate in this patient's care. HERNAN WALL MD DR: GUDELIA/rodriguez JOB#: [id number] / [id number]
[2017-04-09 05:46] LABS: BASO % 0 % (0-3); EOS % 0 % (0-3); HEMATOCRIT 44.5 % (39.0-53.0); HEMOGLOBIN 14.8 g/dL (13.0-17.5); LYMPH # 0.5 x10^3/uL (1.0-4.8); LYMPH % 3 % (24-48); MEAN CORPUSCULAR HEMOGLOBIN 31 pg (25-35); MEAN CORPUSCULAR HGB CONC 33 g/dL (31-37); MEAN CORPUSCULAR VOLUME 93 fL (79-100); MONO % 3 % (0-9); NEUT % 93 % (31-73); PLATELET COUNT 186 x10^3/uL (140-400); RED BLOOD COUNT 4.81 x10^6/uL (4.30-5.70); RED CELL DISTRIBUTION WIDTH 13.1 % (11.5-14.5); WHITE BLOOD COUNT 16.7 x10^3/uL (4.0-11.0)
[2017-04-09 06:20] LABS: CALCIUM 8.1 mg/dL (8.5-10.1); CREATININE 0.8 mg/dL (0.7-1.3); POTASSIUM 3.8 mmol/L (3.5-5.1)
[2017-04-09] MEDS: ACETAMINOPHEN 325 MG TABLET. PO SCH ×3 (08:58→20:52)
[2017-04-09] MEDS: ENOXAPARIN 40 MG/0.4 ML SYRINGE. SQ SCH (08:59)
[2017-04-09] MEDS ORDERED: ACETAMINOPHEN 500 MG TABLET PO PRN (09:15)
--- NOTE | 2017-04-09 10:10 | PDOC ---
SURGICAL PROGRESS NOTE Subjective Pt feels better, temo PO Vital Signs Vital Signs Date Time Temp Pulse Resp B/P (MAP) Pulse Ox O2 Delivery O2 Flow Rate FiO2 04/09/17 08:33 12 98 2.0 04/09/17 08:03 Nasal Cannula 04/09/17 08:00 98.0 68 114/64 (81) 98.0 I&O Intake and Output 04/09/17 07:00 Intake Total 2982.5 ml Output Total 550 ml Balance 2432.5 ml Intake Oral 0 ml IV Total 2982.5 ml Output Urine Total 550 ml General: Alert, Oriented X3, Cooperative, No acute distress Abdomen: Soft, No tenderness Labs Laboratory Tests Test 04/08/17 08:28 04/08/17 08:53 04/08/17 11:47 04/08/17 13:15 Urine Collection Type Unknown Urine Color Yellow Urine Clarity Clear Urine pH 7.0 Urine Specific [place] >=1.030 Urine Protein 30 mg/dL (NEG-TRACE) Urine Glucose (UA) Negative mg/dL (NEG) Urine Ketones (Stick) Negative mg/dL (NEG) Urine Blood Negative (NEG) Urine Nitrite Negative (NEG) Urine Bilirubin Negative (NEG) Urine Urobilinogen Dipstick 0.2 mg/dL (0.2 mg/dL) Urine Leukocyte Esterase Negative (NEG) Urine RBC 0 /HPF (0-2) Urine WBC 0 /HPF (0-4) Urine Bacteria Few /HPF (0-FEW) Urine Mucus Marked /LPF Urine Opiates Screen Neg (NEG) Urine Methadone Screen Neg (NEG) Urine Barbiturates Neg (NEG) Urine Phencyclidine Screen Neg (NEG) Urine Amphetamine/Methamphetamine Neg (NEG) Urine Benzodiazepines Screen Neg (NEG) Urine Cocaine Screen Neg (NEG) Urine Cannabinoids Screen Neg (NEG) Urine Ethyl Alcohol Neg (NEG) White Blood Count 17.4 x10^3/uL (4.0-11.0) Red Blood Count 5.34 x10^6/uL (4.30-5.70) Hemoglobin 16.3 g/dL (13.0-17.5) Hematocrit 48.7 % (39.0-53.0) Mean Corpuscular Volume 91 fL (79-100) Mean Corpuscular Hemoglobin 31 pg (25-35) Mean Corpuscular Hemoglobin Concent 34 g/dL (31-37) Red Cell Distribution Width 12.9 % (11.5-14.5) Platelet Count 222 x10^3/uL (140-400) Neutrophils (%) (Auto) 81 % (31-73) Lymphocytes (%) (Auto) 10 % (24-48) Monocytes (%) (Auto) 9 % (0-9) Eosinophils (%) (Auto) 0 % (0-3) Basophils (%) (Auto) 1 % (0-3) Neutrophils # (Auto) 14.1 x10^3uL (1.8-7.7) Lymphocytes # (Auto) 1.7 x10^3/uL (1.0-4.8) Monocytes # (Auto) 1.5 x10^3/uL (0.0-1.1) Eosinophils # (Auto) 0.1 x10^3/uL (0.0-0.7) Basophils # (Auto) 0.1 x10^3/uL (0.0-0.2) Segmented Neutrophils % 75 % (35-66) Band Neutrophils % 6 % (0-9) Lymphocytes % 11 % (24-48) Monocytes % 8 % (0-10) Platelet Estimate Adequate (ADEQUATE) Large Platelets Few Sodium Level 138 mmol/L (136-145) Potassium Level 3.8 mmol/L (3.5-5.1) Chloride Level 99 mmol/L (98-107) Carbon Dioxide Level 24 mmol/L (21-32) Anion Gap 15 (6-14) Blood Urea Nitrogen 18 mg/dL (8-26) Creatinine 0.7 mg/dL (0.7-1.3) Estimated GFR (Cockcroft-Gault) 128.3 BUN/Creatinine Ratio 26 (6-20) Glucose Level 116 mg/dL (70-99) Calcium Level 8.9 mg/dL (8.5-10.1) Total Bilirubin 1.7 mg/dL (0.2-1.0) Aspartate Amino Transf (AST/SGOT) 22 U/L (15-37) Alanine Aminotransferase (ALT/SGPT) 36 U/L (16-63) Alkaline Phosphatase 138 U/L (46-116) Total Protein 8.6 g/dL (6.4-8.2) Albumin 4.1 g/dL (3.4-5.0) Albumin/Globulin Ratio 0.9 (1.0-1.7) Lipase 89 U/L (73-393) Ethyl Alcohol Level < 10 mg/dL (0-10) Lactic Acid Level 0.9 mmol/L (0.4-2.0) Nasal Screen MRSA (PCR) Negative (Negative) Test 04/09/17 04:45 White Blood Count 16.7 x10^3/uL (4.0-11.0) Red Blood Count 4.81 x10^6/uL (4.30-5.70) Hemoglobin 14.8 g/dL (13.0-17.5) Hematocrit 44.5 % (39.0-53.0) Mean Corpuscular Volume 93 fL (79-100) Mean Corpuscular Hemoglobin 31 pg (25-35) Mean Corpuscular Hemoglobin Concent 33 g/dL (31-37) Red Cell Distribution Width 13.1 % (11.5-14.5) Platelet Count 186 x10^3/uL (140-400) Neutrophils (%) (Auto) 93 % (31-73) Lymphocytes (%) (Auto) 3 % (24-48) Monocytes (%) (Auto) 3 % (0-9) Eosinophils (%) (Auto) 0 % (0-3) Basophils (%) (Auto) 0 % (0-3) Neutrophils # (Auto) 15.6 x10^3uL (1.8-7.7) Lymphocytes # (Auto) 0.5 x10^3/uL (1.0-4.8) Monocytes # (Auto) 0.5 x10^3/uL (0.0-1.1) Eosinophils # (Auto) 0.0 x10^3/uL (0.0-0.7) Basophils # (Auto) 0.0 x10^3/uL (0.0-0.2) Sodium Level 135 mmol/L (136-145) Potassium Level 3.8 mmol/L (3.5-5.1) Chloride Level 102 mmol/L (98-107) Carbon Dioxide Level 22 mmol/L (21-32) Anion Gap 11 (6-14) Blood Urea Nitrogen 11 mg/dL (8-26) Creatinine 0.8 mg/dL (0.7-1.3) Estimated GFR (Cockcroft-Gault) 110.0 Glucose Level 165 mg/dL (70-99) Calcium Level 8.1 mg/dL (8.5-10.1) Laboratory Tests Test 04/08/17 11:47 04/08/17 13:15 04/09/17 04:45 Lactic Acid Level 0.9 mmol/L (0.4-2.0) Nasal Screen MRSA (PCR) Negative (Negative) White Blood Count 16.7 x10^3/uL (4.0-11.0) Red Blood Count 4.81 x10^6/uL (4.30-5.70) Hemoglobin 14.8 g/dL (13.0-17.5) Hematocrit 44.5 % (39.0-53.0) Mean Corpuscular Volume 93 fL (79-100) Mean Corpuscular Hemoglobin 31 pg (25-35) Mean Corpuscular Hemoglobin Concent 33 g/dL (31-37) Red Cell Distribution Width 13.1 % (11.5-14.5) Platelet Count 186 x10^3/uL (140-400) Neutrophils (%) (Auto) 93 % (31-73) Lymphocytes (%) (Auto) 3 % (24-48) Monocytes (%) (Auto) 3 % (0-9) Eosinophils (%) (Auto) 0 % (0-3) Basophils (%) (Auto) 0 % (0-3) Neutrophils # (Auto) 15.6 x10^3uL (1.8-7.7) Lymphocytes # (Auto) 0.5 x10^3/uL (1.0-4.8) Monocytes # (Auto) 0.5 x10^3/uL (0.0-1.1) Eosinophils # (Auto) 0.0 x10^3/uL (0.0-0.7) Basophils # (Auto) 0.0 x10^3/uL (0.0-0.2) Sodium Level 135 mmol/L (136-145) Potassium Level 3.8 mmol/L (3.5-5.1) Chloride Level 102 mmol/L (98-107) Carbon Dioxide Level 22 mmol/L (21-32) Anion Gap 11 (6-14) Blood Urea Nitrogen 11 mg/dL (8-26) Creatinine 0.8 mg/dL (0.7-1.3) Estimated GFR (Cockcroft-Gault) 110.0 Glucose Level 165 mg/dL (70-99) Calcium Level 8.1 mg/dL (8.5-10.1) Problem List Problems Medical Problems: (1) Acute appendicitis with rupture Status: Acute Assessment/Plan s/p lap appendectomy cont abx adat Problems: BERTHA HER MD Apr 09, 2017 10:10
--- NOTE | 2017-04-09 10:29 | PDOC ---
PROGRESS NOTES Chief Complaint Chief Complaint 1. s/p lap appy 04/08 for perforated appy- POD # 1 2. peritonitis sepsis History of Present Illness History of Present Illness Seen in ICU, looking good, doing better Not on any pressors On the phone No family at bedside, language barrier No white count, no fevers Discussed with Dr. Wallace okay to transfer out of ICU Plan: Okay to transfer out of ICU Started on low-fat diet Labs tomorrow Nightly possible home tomorrow and continues to do well discussed with Dr. Wallace Vitals Vitals Vital Signs Date Time Temp Pulse Resp B/P (MAP) Pulse Ox O2 Delivery O2 Flow Rate FiO2 04/09/17 08:33 12 98 2.0 04/09/17 08:03 Nasal Cannula 04/09/17 08:00 98.0 68 114/64 (81) 98.0 Physical Exam General: Alert, Oriented X3, Cooperative, No acute distress Heart: Regular rate, Normal S1, Normal S2, No murmurs Abdomen: Soft, No tenderness Extremities: No clubbing, No edema Skin: No rashes, No significant lesion Labs LABS Laboratory Tests Test 04/08/17 11:47 04/08/17 13:15 04/09/17 04:45 Lactic Acid Level 0.9 mmol/L (0.4-2.0) Nasal Screen MRSA (PCR) Negative (Negative) White Blood Count 16.7 x10^3/uL (4.0-11.0) Red Blood Count 4.81 x10^6/uL (4.30-5.70) Hemoglobin 14.8 g/dL (13.0-17.5) Hematocrit 44.5 % (39.0-53.0) Mean Corpuscular Volume 93 fL (79-100) Mean Corpuscular Hemoglobin 31 pg (25-35) Mean Corpuscular Hemoglobin Concent 33 g/dL (31-37) Red Cell Distribution Width 13.1 % (11.5-14.5) Platelet Count 186 x10^3/uL (140-400) Neutrophils (%) (Auto) 93 % (31-73) Lymphocytes (%) (Auto) 3 % (24-48) Monocytes (%) (Auto) 3 % (0-9) Eosinophils (%) (Auto) 0 % (0-3) Basophils (%) (Auto) 0 % (0-3) Neutrophils # (Auto) 15.6 x10^3uL (1.8-7.7) Lymphocytes # (Auto) 0.5 x10^3/uL (1.0-4.8) Monocytes # (Auto) 0.5 x10^3/uL (0.0-1.1) Eosinophils # (Auto) 0.0 x10^3/uL (0.0-0.7) Basophils # (Auto) 0.0 x10^3/uL (0.0-0.2) Sodium Level 135 mmol/L (136-145) Potassium Level 3.8 mmol/L (3.5-5.1) Chloride Level 102 mmol/L (98-107) Carbon Dioxide Level 22 mmol/L (21-32) Anion Gap 11 (6-14) Blood Urea Nitrogen 11 mg/dL (8-26) Creatinine 0.8 mg/dL (0.7-1.3) Estimated GFR (Cockcroft-Gault) 110.0 Glucose Level 165 mg/dL (70-99) Calcium Level 8.1 mg/dL (8.5-10.1) Review of Systems Review of Systems Denies 14 point system reviewed Assessment and Plan Assessmemt and Plan Problems Medical Problems: (1) Acute appendicitis with rupture Status: Acute Problems: Comment Review of Relevant I have reviewed the following items vanesa (where applicable) has been applied. Labs Laboratory Tests Test 04/08/17 08:28 04/08/17 08:53 04/08/17 11:47 04/08/17 13:15 Urine Collection Type Unknown Urine Color Yellow Urine Clarity Clear Urine pH 7.0 Urine Specific Bryan >=1.030 Urine Protein 30 mg/dL (NEG-TRACE) Urine Glucose (UA) Negative mg/dL (NEG) Urine Ketones (Stick) Negative mg/dL (NEG) Urine Blood Negative (NEG) Urine Nitrite Negative (NEG) Urine Bilirubin Negative (NEG) Urine Urobilinogen Dipstick 0.2 mg/dL (0.2 mg/dL) Urine Leukocyte Esterase Negative (NEG) Urine RBC 0 /HPF (0-2) Urine WBC 0 /HPF (0-4) Urine Bacteria Few /HPF (0-FEW) Urine Mucus Marked /LPF Urine Opiates Screen Neg (NEG) Urine Methadone Screen Neg (NEG) Urine Barbiturates Neg (NEG) Urine Phencyclidine Screen Neg (NEG) Urine Amphetamine/Methamphetamine Neg (NEG) Urine Benzodiazepines Screen Neg (NEG) Urine Cocaine Screen Neg (NEG) Urine Cannabinoids Screen Neg (NEG) Urine Ethyl Alcohol Neg (NEG) White Blood Count 17.4 x10^3/uL (4.0-11.0) Red Blood Count 5.34 x10^6/uL (4.30-5.70) Hemoglobin 16.3 g/dL (13.0-17.5) Hematocrit 48.7 % (39.0-53.0) Mean Corpuscular Volume 91 fL (79-100) Mean Corpuscular Hemoglobin 31 pg (25-35) Mean Corpuscular Hemoglobin Concent 34 g/dL (31-37) Red Cell Distribution Width 12.9 % (11.5-14.5) Platelet Count 222 x10^3/uL (140-400) Neutrophils (%) (Auto) 81 % (31-73) Lymphocytes (%) (Auto) 10 % (24-48) Monocytes (%) (Auto) 9 % (0-9) Eosinophils (%) (Auto) 0 % (0-3) Basophils (%) (Auto) 1 % (0-3) Neutrophils # (Auto) 14.1 x10^3uL (1.8-7.7) Lymphocytes # (Auto) 1.7 x10^3/uL (1.0-4.8) Monocytes # (Auto) 1.5 x10^3/uL (0.0-1.1) Eosinophils # (Auto) 0.1 x10^3/uL (0.0-0.7) Basophils # (Auto) 0.1 x10^3/uL (0.0-0.2) Segmented Neutrophils % 75 % (35-66) Band Neutrophils % 6 % (0-9) Lymphocytes % 11 % (24-48) Monocytes % 8 % (0-10) Platelet Estimate Adequate (ADEQUATE) Large Platelets Few Sodium Level 138 mmol/L (136-145) Potassium Level 3.8 mmol/L (3.5-5.1) Chloride Level 99 mmol/L (98-107) Carbon Dioxide Level 24 mmol/L (21-32) Anion Gap 15 (6-14) Blood Urea Nitrogen 18 mg/dL (8-26) Creatinine 0.7 mg/dL (0.7-1.3) Estimated GFR (Cockcroft-Gault) 128.3 BUN/Creatinine Ratio 26 (6-20) Glucose Level 116 mg/dL (70-99) Calcium Level 8.9 mg/dL (8.5-10.1) Total Bilirubin 1.7 mg/dL (0.2-1.0) Aspartate Amino Transf (AST/SGOT) 22 U/L (15-37) Alanine Aminotransferase (ALT/SGPT) 36 U/L (16-63) Alkaline Phosphatase 138 U/L (46-116) Total Protein 8.6 g/dL (6.4-8.2) Albumin 4.1 g/dL (3.4-5.0) Albumin/Globulin Ratio 0.9 (1.0-1.7) Lipase 89 U/L (73-393) Ethyl Alcohol Level < 10 mg/dL (0-10) Lactic Acid Level 0.9 mmol/L (0.4-2.0) Nasal Screen MRSA (PCR) Negative (Negative) Test 04/09/17 04:45 White Blood Count 16.7 x10^3/uL (4.0-11.0) Red Blood Count 4.81 x10^6/uL (4.30-5.70) Hemoglobin 14.8 g/dL (13.0-17.5) Hematocrit 44.5 % (39.0-53.0) Mean Corpuscular Volume 93 fL (79-100) Mean Corpuscular Hemoglobin 31 pg (25-35) Mean Corpuscular Hemoglobin Concent 33 g/dL (31-37) Red Cell Distribution Width 13.1 % (11.5-14.5) Platelet Count 186 x10^3/uL (140-400) Neutrophils (%) (Auto) 93 % (31-73) Lymphocytes (%) (Auto) 3 % (24-48) Monocytes (%) (Auto) 3 % (0-9) Eosinophils (%) (Auto) 0 % (0-3) Basophils (%) (Auto) 0 % (0-3) Neutrophils # (Auto) 15.6 x10^3uL (1.8-7.7) Lymphocytes # (Auto) 0.5 x10^3/uL (1.0-4.8) Monocytes # (Auto) 0.5 x10^3/uL (0.0-1.1) Eosinophils # (Auto) 0.0 x10^3/uL (0.0-0.7) Basophils # (Auto) 0.0 x10^3/uL (0.0-0.2) Sodium Level 135 mmol/L (136-145) Potassium Level 3.8 mmol/L (3.5-5.1) Chloride Level 102 mmol/L (98-107) Carbon Dioxide Level 22 mmol/L (21-32) Anion Gap 11 (6-14) Blood Urea Nitrogen 11 mg/dL (8-26) Creatinine 0.8 mg/dL (0.7-1.3) Estimated GFR (Cockcroft-Gault) 110.0 Glucose Level 165 mg/dL (70-99) Calcium Level 8.1 mg/dL (8.5-10.1) Laboratory Tests Test 04/08/17 11:47 04/08/17 13:15 04/09/17 04:45 Lactic Acid Level 0.9 mmol/L (0.4-2.0) Nasal Screen MRSA (PCR) Negative (Negative) White Blood Count 16.7 x10^3/uL (4.0-11.0) Red Blood Count 4.81 x10^6/uL (4.30-5.70) Hemoglobin 14.8 g/dL (13.0-17.5) Hematocrit 44.5 % (39.0-53.0) Mean Corpuscular Volume 93 fL (79-100) Mean Corpuscular Hemoglobin 31 pg (25-35) Mean Corpuscular Hemoglobin Concent 33 g/dL (31-37) Red Cell Distribution Width 13.1 % (11.5-14.5) Platelet Count 186 x10^3/uL (140-400) Neutrophils (%) (Auto) 93 % (31-73) Lymphocytes (%) (Auto) 3 % (24-48) Monocytes (%) (Auto) 3 % (0-9) Eosinophils (%) (Auto) 0 % (0-3) Basophils (%) (Auto) 0 % (0-3) Neutrophils # (Auto) 15.6 x10^3uL (1.8-7.7) Lymphocytes # (Auto) 0.5 x10^3/uL (1.0-4.8) Monocytes # (Auto) 0.5 x10^3/uL (0.0-1.1) Eosinophils # (Auto) 0.0 x10^3/uL (0.0-0.7) Basophils # (Auto) 0.0 x10^3/uL (0.0-0.2) Sodium Level 135 mmol/L (136-145) Potassium Level 3.8 mmol/L (3.5-5.1) Chloride Level 102 mmol/L (98-107) Carbon Dioxide Level 22 mmol/L (21-32) Anion Gap 11 (6-14) Blood Urea Nitrogen 11 mg/dL (8-26) Creatinine 0.8 mg/dL (0.7-1.3) Estimated GFR (Cockcroft-Gault) 110.0 Glucose Level 165 mg/dL (70-99) Calcium Level 8.1 mg/dL (8.5-10.1) Medications Current Medications Famotidine (Pepcid Vial) 20 mg 1X ONCE IVP Last administered on 04/08/17 09: 00; Start 04/08/17 at 08:45; Stop 04/08/17 at 08:52; Status DC Ondansetron HCl (Zofran) 4 mg 1X ONCE IV Last administered on 04/08/17 09:01 ; Start 04/08/17 at 08:45; Stop 04/08/17 at 08:52; Status DC Ketorolac Tromethamine (Toradol) 30 mg 1X ONCE IV Last administered on 09:00; Start 04/08/17 at 08:45; Stop 04/08/17 at 08:52; Status DC Sodium Chloride 1,000 ml @ 1,000 mls/hr 1X ONCE IV Last administered on 04/08 09:00; Start 04/08/17 at 08:45; Stop 04/08/17 at 09:44; Status DC Dicyclomine HCl (Bentyl) 20 mg 1X ONCE PO Last administered on 04/08/17 09: 01; Start 04/08/17 at 08:45; Stop 04/08/17 at 08:52; Status DC Iohexol (Omnipaque 300 Mg/ml) 75 ml 1X ONCE IV Last administered on 10:08; Start 04/08/17 at 10:00; Stop 04/08/17 at 10:01; Status DC Info (Do NOT chart on this entry -- for MONITORING) 1 each PRN DAILY PRN MC SEE COMMENTS; Start 04/08/17 at 10:15; Stop 04/10/17 at 10:14 Morphine Sulfate 5 mg 1X ONCE IV Last administered on 04/08/17 11:26; Start 04/08/17 at 11:00; Stop 04/08/17 at 11:01; Status DC Piperacillin Sod/ Tazobactam Sod 3.375 gm/Dextrose 50 ml @ 100 mls/hr 1X ONCE IV ; Start 04/08/17 at 11:00; Stop 04/08/17 at 11:29; Status UNV Sodium Chloride 1,000 ml @ 125 mls/hr 1X ONCE IV Last administered on 11:28; Start 04/08/17 at 11:00; Stop 04/08/17 at 18:59; Status DC Piperacillin Sod/ Tazobactam Sod (Zosyn) 3.375 gm 1X ONCE IVP Last administered on 04/08/17 11:29; Start 04/08/17 at 11:30; Stop 04/08/17 at 11 :31; Status DC Ondansetron HCl (Zofran) 4 mg PRN Q8HRS PRN IV NAUSEA/VOMITING Last administered on 04/08/17 14:50; Start 04/08/17 at 11:30; Stop 04/08/17 at 20 :17; Status DC Morphine Sulfate 4 mg PRN Q2HR PRN IV PAIN Last administered on 04/09/17 08: 03; Start 04/08/17 at 11:30; Stop 04/09/17 at 11:29 Piperacillin Sod/ Tazobactam Sod 4.5 gm/Dextrose 100 ml @ 200 mls/hr Q8HRS IV ; Start 04/08/17 at 14:00; Status UNV Fentanyl Citrate (Fentanyl 2ml Vial) 50 mcg Q2HR PRN IV pain; Start 04/08/17 at 12:00 Ketorolac Tromethamine (Toradol) 15 mg Q6HRS PRN IV pain; Start 04/08/17 at 12 :00; Stop 04/08/17 at 20:17; Status DC Acetaminophen (Tylenol) 650 mg TID PO Last administered on 04/09/17 08:58; Start 04/08/17 at 14:00; Stop 04/10/17 at 09:00 Piperacillin Sod/ Tazobactam Sod (Zosyn) 3.375 gm Q6HRS IVP Last administered on 04/09/17 06:02; Start 04/08/17 at 18:00 Potassium Chloride/Dextrose/ Sod Cl 1,000 ml @ 125 mls/hr Q8H IV Last administered on 04/09/17 08:04; Start 04/08/17 at 14:30 Sevoflurane (Ultane) 60 ml STK-MED ONCE IH ; Start 04/08/17 at 18:21; Stop at 18:22; Status DC Midazolam HCl (Versed) 2 mg STK-MED ONCE .ROUTE ; Start 04/08/17 at 18:21; Stop 04/08/17 at 18:22; Status DC Fentanyl Citrate (Fentanyl 2ml Vial) 100 mcg STK-MED ONCE .ROUTE ; Start at 18:21; Stop 04/08/17 at 18:22; Status DC Succinylcholine Chloride (Anectine) 200 mg STK-MED ONCE .ROUTE ; Start at 18:21; Stop 04/08/17 at 18:22; Status DC Glycopyrrolate (Robinul) 1 mg STK-MED ONCE .ROUTE ; Start 04/08/17 at 18:22; Stop 04/08/17 at 18:23; Status DC Neostigmine Methylsulfate 5 mg STK-MED ONCE .ROUTE ; Start 04/08/17 at 18:22; Stop 04/08/17 at 18:23; Status DC Rocuronium [place] (Zemuron) 50 mg STK-MED ONCE .ROUTE ; Start 04/08/17 at 18: 22; Stop 04/08/17 at 18:23; Status DC Propofol 20 ml @ As Directed STK-MED ONCE IV ; Start 04/08/17 at 18:22; Stop 04/08/17 at 18:23; Status DC Lidocaine HCl (Lidocaine Pf 2% Vial) 5 ml STK-MED ONCE .ROUTE ; Start 04/08/17 at 18:22; Stop 04/08/17 at 18:23; Status DC Dexamethasone Sodium Phosphate (Decadron) 20 mg STK-MED ONCE .ROUTE ; Start at 18:22; Stop 04/08/17 at 18:23; Status DC Ondansetron HCl (Zofran) 4 mg STK-MED ONCE .ROUTE ; Start 04/08/17 at 18:22; Stop 04/08/17 at 18:23; Status DC Bupivacaine HCl/ Epinephrine Bitart (Sensorcain-Mpf Epi 0.5%-1:[id number]) 30 ml STK -MED ONCE .ROUTE Last administered on 04/08/17t 19:43; Start 04/08/17 at 18: 42; Stop 04/08/17 at 18:43; Status DC Cellulose 1 each STK-MED ONCE .ROUTE ; Start 04/08/17 at 18:42; Stop 04/08/17 at 18:43; Status DC Ondansetron HCl (Zofran) 4 mg PRN Q6HRS PRN IV NAUSEA/VOMITING; Start at 19:30; Stop 04/09/17 at 19:29 Fentanyl Citrate (Fentanyl 2ml Vial) 25 mcg PRN Q5MIN PRN IV MILD PAIN; Start 04/08/17 at 19:30; Stop 04/09/17 at 19:29 Fentanyl Citrate (Fentanyl 2ml Vial) 50 mcg PRN Q5MIN PRN IV MODERATE PAIN; Start 04/08/17 at 19:30; Stop 04/09/17 at 19:29 Morphine Sulfate 1 mg PRN Q10MIN PRN IV SEVERE PAIN; Start 04/08/17 at 19:30; Stop 04/09/17 at 19:29 Ringer's Solution 1,000 ml @ 30 mls/hr Q24H IV ; Start 04/08/17 at 19:30; Stop 04/08/17 at 21:11; Status DC Lidocaine HCl (Xylocaine-Mpf 1% Vial) 2 ml 1X PRN PRN ID IV START; Start 04/08 at 19:30; Stop 04/09/17 at 19:29 Hydromorphone HCl (Dilaudid) 0.5 mg PRN Q10MIN PRN IV SEV PAIN, Second choice; Start 04/08/17 at 19:30; Stop 04/09/17 at 19:29 Prochlorperazine Edisylate (Compazine) 5 mg PACU PRN PRN IV NAUSEA, MRX1; Start 04/08/17 at 19:30; Stop 04/09/17 at 19:29 Sevoflurane (Ultane) 60 ml STK-MED ONCE IH ; Start 04/08/17 at 19:47; Stop at 19:48; Status DC Fentanyl Citrate (Fentanyl 2ml Vial) 100 mcg STK-MED ONCE .ROUTE ; Start at 20:12; Stop 04/08/17 at 20:13; Status DC Enoxaparin Sodium (Lovenox 40mg Syringe) 40 mg Q24H SQ Last administered on t 08:59; Start 04/09/17 at 09:00 Sodium Chloride (Normal Saline Flush) 3 ml QSHIFT PRN IV AFTER MEDS AND BLOOD DRAWS; Start 04/08/17 at 20:15 Ringer's Solution 1,000 ml @ 100 mls/hr Q10H IV ; Start 04/08/17 at 20:12; Stop 04/08/17 at 21:11; Status DC Acetaminophen/ Hydrocodone Bitart (Lortab 5/325) 1 tab PRN Q4HRS PRN PO MILD PAIN; Start 04/08/17 at 20:15 Ketorolac Tromethamine (Toradol) 30 mg PRN Q6HRS PRN IV PAIN; Start 04/08/17 at 20:15; Stop 04/13/17 at 20:14 Morphine Sulfate 1 mg PRN Q1HR PRN IV PAIN; Start 04/08/17 at 20:15 Ondansetron HCl (Zofran) 4 mg PRN Q6HRS PRN IV NAUESA, 1ST CHOICE; Start 04/08 at 20:15 Acetaminophen (Tylenol) 500 mg PRN Q6HRS PRN PO MILD PAIN / TEMP; Start at 09:15 Lactobacillus Rhamnosus (Culturelle) 1 cap BID PO ; Start 04/09/17 at 21:00 Vitals/I & O Vital Sign - Last 24 Hours 04/08/17 04/08/17 04/08/17 04/08/17 10:46 11:16 11:26 11:30 Pulse 70 74 78 B/P (MAP) 114/63 (80) 120/73 (89) 121/72 (88) Pulse Ox 98 99 99 O2 Delivery Room Air Room Air Room Air Room Air 04/08/17 04/08/17 04/08/17 04/08/17 11:46 12:45 12:45 12:45 Temp 100.7 100.7 100.7 100.7 Pulse 82 85 85 Resp 25 25 B/P (MAP) 137/81 (99) 133/79 (97) 133/79 (97) Pulse Ox 98 98 98 O2 Delivery Room Air Room Air Room Air Room Air 04/08/17 04/08/17 04/08/17 04/08/17 12:46 12:50 13:00 14:00 Temp 100.7 100.7 Pulse 94 110 Resp 23 30 B/P (MAP) 142/80 (100) 142/80 (100) 140/69 (92) Pulse Ox 98 98 O2 Delivery Room Air Room Air 04/08/17 04/08/17 04/08/17 04/08/17 14:50 15:00 16:45 19:00 Pulse 101 104 Resp 30 21 30 21 B/P (MAP) 115/63 (80) 128/61 (83) Pulse Ox 98 98 98 98 O2 Delivery Room Air Room Air Room Air Room Air 04/08/17 04/08/17 04/09/17 04/09/17 21:00 21:03 00:00 00:31 Temp 98.4 98.4 Pulse 90 85 Resp 24 19 16 19 B/P (MAP) 110/58 (75) 101/56 (71) Pulse Ox 97 100 97 97 O2 Delivery Nasal Cannula Nasal Cannula Nasal Cannula Nasal Cannula O2 Flow Rate 3.0 3.0 3.0 3.0 04/09/17 04/09/17 04/09/17 04/09/17 04:00 05:25 06:34 08:00 Temp 98.7 98.0 98.7 98.0 Pulse 64 68 Resp 20 19 20 B/P (MAP) 97/55 (69) 114/64 (81) Pulse Ox 99 98 98 O2 Delivery Nasal Cannula Nasal Cannula Nasal Cannula Nasal Cannula O2 Flow Rate 3.0 3.0 2.0 04/09/17 04/09/17 04/09/17 08:00 08:03 08:33 Resp 22 12 Pulse Ox 98 98 O2 Delivery Nasal Cannula Nasal Cannula O2 Flow Rate 2.0 2.0 2.0 Intake and Output 04/08/17 04/08/17 04/09/17 14:59 22:59 06:59 Intake Total 1422 ml 200 ml 1360.5 ml Output Total 550 ml 0 ml Balance 872 ml 200 ml 1360.5 ml JORDAN ROSE MD Apr 09, 2017 10:29
[2017-04-09] MEDS: HYDROcodone/APAP 5/325MG 1 TAB TABLET PO PRN ×2 (10:55→18:20)
--- NOTE | 2017-04-09 11:16 | PDOC ---
Infectious Disease Note Subjective Subjective c/o little abdominal pain Tolerating clear liquids Less fever, Tmax 100.7 ROS ROS Vital Sign Vital Signs Vital Signs Date Time Temp Pulse Resp B/P (MAP) Pulse Ox O2 Delivery O2 Flow Rate FiO2 04/09/17 10:55 20 98 Room Air 04/09/17 08:33 2.0 04/09/17 08:00 98.0 68 114/64 (81) 98.0 Physical Exam PHYSICAL EXAM GENERAL: Propped up in bed, relaxed appearance, smiling HEENT: OC/OP clear LUNGS: Clear HEART: S1S2, no gallop, no murmur ABD: Distended, BS active, soft, mildly tender EXT: No edema, no cyanosis ENV[employer]MENTAL SERVICES TECH: Alert, responding appropriately SKIN: No rash IV: ok Labs Lab Laboratory Tests Test 04/08/17 11:47 04/08/17 13:15 04/09/17 04:45 Lactic Acid Level 0.9 mmol/L (0.4-2.0) Nasal Screen MRSA (PCR) Negative (Negative) White Blood Count 16.7 x10^3/uL (4.0-11.0) Red Blood Count 4.81 x10^6/uL (4.30-5.70) Hemoglobin 14.8 g/dL (13.0-17.5) Hematocrit 44.5 % (39.0-53.0) Mean Corpuscular Volume 93 fL (79-100) Mean Corpuscular Hemoglobin 31 pg (25-35) Mean Corpuscular Hemoglobin Concent 33 g/dL (31-37) Red Cell Distribution Width 13.1 % (11.5-14.5) Platelet Count 186 x10^3/uL (140-400) Neutrophils (%) (Auto) 93 % (31-73) Lymphocytes (%) (Auto) 3 % (24-48) Monocytes (%) (Auto) 3 % (0-9) Eosinophils (%) (Auto) 0 % (0-3) Basophils (%) (Auto) 0 % (0-3) Neutrophils # (Auto) 15.6 x10^3uL (1.8-7.7) Lymphocytes # (Auto) 0.5 x10^3/uL (1.0-4.8) Monocytes # (Auto) 0.5 x10^3/uL (0.0-1.1) Eosinophils # (Auto) 0.0 x10^3/uL (0.0-0.7) Basophils # (Auto) 0.0 x10^3/uL (0.0-0.2) Sodium Level 135 mmol/L (136-145) Potassium Level 3.8 mmol/L (3.5-5.1) Chloride Level 102 mmol/L (98-107) Carbon Dioxide Level 22 mmol/L (21-32) Anion Gap 11 (6-14) Blood Urea Nitrogen 11 mg/dL (8-26) Creatinine 0.8 mg/dL (0.7-1.3) Estimated GFR (Cockcroft-Gault) 110.0 Glucose Level 165 mg/dL (70-99) Calcium Level 8.1 mg/dL (8.5-10.1) Objective Assessment Appendicitis with perforation, s/p lap appendectomy on 04/08 Low-grade fever Leukocytosis Plan Plan of Care Zosyn Monitor WBC & temp Supportive care Pt seen and examined D/W [employer]. Agree with above LAURA HESS APRN Apr 09, 2017 11:16 PATRICK WALL MD Apr 09, 2017 19:35
[2017-04-09] MEDS: LACTOBACILLUS RHAMNOSUS GG 1 CAPSULE. PO SCH (20:52)
[2017-04-10] MEDS: PIPERACILLIN/TAZO IV Push 3.375 GM VIAL. IVP SCH ×4 (00:15→17:43)
[2017-04-10] MEDS: HYDROcodone/APAP 5/325MG 1 TAB TABLET PO PRN ×4 (00:15→20:08)
[2017-04-10 03:07] VITALS: BP 101/57
[2017-04-10] MEDS: POTASSIUM CL 20MEQ D5-0.45NACL 1,000 ML IV SCH (03:47)
[2017-04-10 05:17] LABS: BASO % 0 % (0-3); EOS % 0 % (0-3); HEMATOCRIT 37.4 % (39.0-53.0); HEMOGLOBIN 12.6 g/dL (13.0-17.5); LYMPH # 1.4 x10^3/uL (1.0-4.8); LYMPH % 12 % (24-48); MEAN CORPUSCULAR HEMOGLOBIN 31 pg (25-35); MEAN CORPUSCULAR HGB CONC 34 g/dL (31-37); MEAN CORPUSCULAR VOLUME 92 fL (79-100); MONO % 6 % (0-9); NEUT % 82 % (31-73); PLATELET COUNT 176 x10^3/uL (140-400); RED BLOOD COUNT 4.07 x10^6/uL (4.30-5.70); RED CELL DISTRIBUTION WIDTH 12.9 % (11.5-14.5); WHITE BLOOD COUNT 11.8 x10^3/uL (4.0-11.0)
[2017-04-10 05:42] LABS: CALCIUM 7.9 mg/dL (8.5-10.1); CREATININE 0.8 mg/dL (0.7-1.3); POTASSIUM 3.9 mmol/L (3.5-5.1)
[2017-04-10 08:00] VITALS: BP 119/68
[2017-04-10] MEDS: ACETAMINOPHEN 325 MG TABLET. PO SCH (09:05)
[2017-04-10] MEDS: LACTOBACILLUS RHAMNOSUS GG 1 CAPSULE. PO SCH ×2 (09:05→20:08)
[2017-04-10] MEDS: ENOXAPARIN 40 MG/0.4 ML SYRINGE. SQ SCH (09:05)
--- NOTE | 2017-04-10 09:59 | PDOC ---
PROGRESS NOTES Chief Complaint Chief Complaint 1. s/p lap appy 04/08 for perforated appendicitis, - POD # 2. peritonitis 3. sepsis History of Present Illness History of Present Illness out of ICU, looking better, str better eating OK white count improved cont IV zosyn, if OK with ID will transition to PO soon Vitals Vitals Vital Signs Date Time Temp Pulse Resp B/P (MAP) Pulse Ox O2 Delivery O2 Flow Rate FiO2 04/10/17 08:00 97.7 57 20 119/68 (85) 98 Room Air 97.7 04/09/17 08:33 2.0 Physical Exam General: Alert, Oriented X3, Cooperative, No acute distress Heart: Regular rate, Normal S1, Normal S2, No murmurs Lungs: Clear Abdomen: Soft, No tenderness Extremities: No clubbing, No edema Skin: No rashes, No significant lesion Labs LABS Laboratory Tests Test 04/10/17 04:35 White Blood Count 11.8 x10^3/uL (4.0-11.0) Red Blood Count 4.07 x10^6/uL (4.30-5.70) Hemoglobin 12.6 g/dL (13.0-17.5) Hematocrit 37.4 % (39.0-53.0) Mean Corpuscular Volume 92 fL (79-100) Mean Corpuscular Hemoglobin 31 pg (25-35) Mean Corpuscular Hemoglobin Concent 34 g/dL (31-37) Red Cell Distribution Width 12.9 % (11.5-14.5) Platelet Count 176 x10^3/uL (140-400) Neutrophils (%) (Auto) 82 % (31-73) Lymphocytes (%) (Auto) 12 % (24-48) Monocytes (%) (Auto) 6 % (0-9) Eosinophils (%) (Auto) 0 % (0-3) Basophils (%) (Auto) 0 % (0-3) Neutrophils # (Auto) 9.7 x10^3uL (1.8-7.7) Lymphocytes # (Auto) 1.4 x10^3/uL (1.0-4.8) Monocytes # (Auto) 0.7 x10^3/uL (0.0-1.1) Eosinophils # (Auto) 0.0 x10^3/uL (0.0-0.7) Basophils # (Auto) 0.0 x10^3/uL (0.0-0.2) Sodium Level 138 mmol/L (136-145) Potassium Level 3.9 mmol/L (3.5-5.1) Chloride Level 104 mmol/L (98-107) Carbon Dioxide Level 27 mmol/L (21-32) Anion Gap 7 (6-14) Blood Urea Nitrogen 15 mg/dL (8-26) Creatinine 0.8 mg/dL (0.7-1.3) Estimated GFR (Cockcroft-Gault) 110.0 Glucose Level 133 mg/dL (70-99) Calcium Level 7.9 mg/dL (8.5-10.1) Review of Systems Review of Systems abd pain n/v/d Assessment and Plan Assessmemt and Plan Problems Medical Problems: (1) Acute appendicitis with rupture Status: Acute Problems: Comment Review of Relevant I have reviewed the following items vanesa (where applicable) has been applied. Labs Laboratory Tests Test 04/08/17 11:47 04/08/17 13:15 04/09/17 04:45 04/10/17 04:35 Lactic Acid Level 0.9 mmol/L (0.4-2.0) Nasal Screen MRSA (PCR) Negative (Negative) White Blood Count 16.7 x10^3/uL (4.0-11.0) 11.8 x10^3/uL (4.0-11.0) Red Blood Count 4.81 x10^6/uL (4.30-5.70) 4.07 x10^6/uL (4.30-5.70) Hemoglobin 14.8 g/dL (13.0-17.5) 12.6 g/dL (13.0-17.5) Hematocrit 44.5 % (39.0-53.0) 37.4 % (39.0-53.0) Mean Corpuscular Volume 93 fL (79-100) 92 fL (79-100) Mean Corpuscular Hemoglobin 31 pg (25-35) 31 pg (25-35) Mean Corpuscular Hemoglobin Concent 33 g/dL (31-37) 34 g/dL (31-37) Red Cell Distribution Width 13.1 % (11.5-14.5) 12.9 % (11.5-14.5) Platelet Count 186 x10^3/uL (140-400) 176 x10^3/uL (140-400) Neutrophils (%) (Auto) 93 % (31-73) 82 % (31-73) Lymphocytes (%) (Auto) 3 % (24-48) 12 % (24-48) Monocytes (%) (Auto) 3 % (0-9) 6 % (0-9) Eosinophils (%) (Auto) 0 % (0-3) 0 % (0-3) Basophils (%) (Auto) 0 % (0-3) 0 % (0-3) Neutrophils # (Auto) 15.6 x10^3uL (1.8-7.7) 9.7 x10^3uL (1.8-7.7) Lymphocytes # (Auto) 0.5 x10^3/uL (1.0-4.8) 1.4 x10^3/uL (1.0-4.8) Monocytes # (Auto) 0.5 x10^3/uL (0.0-1.1) 0.7 x10^3/uL (0.0-1.1) Eosinophils # (Auto) 0.0 x10^3/uL (0.0-0.7) 0.0 x10^3/uL (0.0-0.7) Basophils # (Auto) 0.0 x10^3/uL (0.0-0.2) 0.0 x10^3/uL (0.0-0.2) Sodium Level 135 mmol/L (136-145) 138 mmol/L (136-145) Potassium Level 3.8 mmol/L (3.5-5.1) 3.9 mmol/L (3.5-5.1) Chloride Level 102 mmol/L (98-107) 104 mmol/L (98-107) Carbon Dioxide Level 22 mmol/L (21-32) 27 mmol/L (21-32) Anion Gap 11 (6-14) 7 (6-14) Blood Urea Nitrogen 11 mg/dL (8-26) 15 mg/dL (8-26) Creatinine 0.8 mg/dL (0.7-1.3) 0.8 mg/dL (0.7-1.3) Estimated GFR (Cockcroft-Gault) 110.0 110.0 Glucose Level 165 mg/dL (70-99) 133 mg/dL (70-99) Calcium Level 8.1 mg/dL (8.5-10.1) 7.9 mg/dL (8.5-10.1) Laboratory Tests Test 04/10/17 04:35 White Blood Count 11.8 x10^3/uL (4.0-11.0) Red Blood Count 4.07 x10^6/uL (4.30-5.70) Hemoglobin 12.6 g/dL (13.0-17.5) Hematocrit 37.4 % (39.0-53.0) Mean Corpuscular Volume 92 fL (79-100) Mean Corpuscular Hemoglobin 31 pg (25-35) Mean Corpuscular Hemoglobin Concent 34 g/dL (31-37) Red Cell Distribution Width 12.9 % (11.5-14.5) Platelet Count 176 x10^3/uL (140-400) Neutrophils (%) (Auto) 82 % (31-73) Lymphocytes (%) (Auto) 12 % (24-48) Monocytes (%) (Auto) 6 % (0-9) Eosinophils (%) (Auto) 0 % (0-3) Basophils (%) (Auto) 0 % (0-3) Neutrophils # (Auto) 9.7 x10^3uL (1.8-7.7) Lymphocytes # (Auto) 1.4 x10^3/uL (1.0-4.8) Monocytes # (Auto) 0.7 x10^3/uL (0.0-1.1) Eosinophils # (Auto) 0.0 x10^3/uL (0.0-0.7) Basophils # (Auto) 0.0 x10^3/uL (0.0-0.2) Sodium Level 138 mmol/L (136-145) Potassium Level 3.9 mmol/L (3.5-5.1) Chloride Level 104 mmol/L (98-107) Carbon Dioxide Level 27 mmol/L (21-32) Anion Gap 7 (6-14) Blood Urea Nitrogen 15 mg/dL (8-26) Creatinine 0.8 mg/dL (0.7-1.3) Estimated GFR (Cockcroft-Gault) 110.0 Glucose Level 133 mg/dL (70-99) Calcium Level 7.9 mg/dL (8.5-10.1) Microbiology 04/08/17 Blood Culture - Preliminary, Resulted NO GROWTH AFTER 1 DAY Medications Current Medications Famotidine (Pepcid Vial) 20 mg 1X ONCE IVP Last administered on 04/08/17 09: 00; Start 04/08/17 at 08:45; Stop 04/08/17 at 08:52; Status DC Ondansetron HCl (Zofran) 4 mg 1X ONCE IV Last administered on 04/08/17 09:01 ; Start 04/08/17 at 08:45; Stop 04/08/17 at 08:52; Status DC Ketorolac Tromethamine (Toradol) 30 mg 1X ONCE IV Last administered on 09:00; Start 04/08/17 at 08:45; Stop 04/08/17 at 08:52; Status DC Sodium Chloride 1,000 ml @ 1,000 mls/hr 1X ONCE IV Last administered on 04/08 09:00; Start 04/08/17 at 08:45; Stop 04/08/17 at 09:44; Status DC Dicyclomine HCl (Bentyl) 20 mg 1X ONCE PO Last administered on 04/08/17 09: 01; Start 04/08/17 at 08:45; Stop 04/08/17 at 08:52; Status DC Iohexol (Omnipaque 300 Mg/ml) 75 ml 1X ONCE IV Last administered on 10:08; Start 04/08/17 at 10:00; Stop 04/08/17 at 10:01; Status DC Info (Do NOT chart on this entry -- for MONITORING) 1 each PRN DAILY PRN MC SEE COMMENTS; Start 04/08/17 at 10:15; Stop 04/10/17 at 10:14 Morphine Sulfate 5 mg 1X ONCE IV Last administered on 04/08/17 11:26; Start 04/08/17 at 11:00; Stop 04/08/17 at 11:01; Status DC Piperacillin Sod/ Tazobactam Sod 3.375 gm/Dextrose 50 ml @ 100 mls/hr 1X ONCE IV ; Start 04/08/17 at 11:00; Stop 04/08/17 at 11:29; Status UNV Sodium Chloride 1,000 ml @ 125 mls/hr 1X ONCE IV Last administered on 11:28; Start 04/08/17 at 11:00; Stop 04/08/17 at 18:59; Status DC Piperacillin Sod/ Tazobactam Sod (Zosyn) 3.375 gm 1X ONCE IVP Last administered on 04/08/17 11:29; Start 04/08/17 at 11:30; Stop 04/08/17 at 11 :31; Status DC Ondansetron HCl (Zofran) 4 mg PRN Q8HRS PRN IV NAUSEA/VOMITING Last administered on 04/08/17 14:50; Start 04/08/17 at 11:30; Stop 04/08/17 at 20 :17; Status DC Morphine Sulfate 4 mg PRN Q2HR PRN IV PAIN Last administered on 04/09/17 08: 03; Start 04/08/17 at 11:30; Stop 04/09/17 at 11:29; Status DC Piperacillin Sod/ Tazobactam Sod 4.5 gm/Dextrose 100 ml @ 200 mls/hr Q8HRS IV ; Start 04/08/17 at 14:00; Status UNV Fentanyl Citrate (Fentanyl 2ml Vial) 50 mcg Q2HR PRN IV pain; Start 04/08/17 at 12:00 Ketorolac Tromethamine (Toradol) 15 mg Q6HRS PRN IV pain; Start 04/08/17 at 12 :00; Stop 04/08/17 at 20:17; Status DC Acetaminophen (Tylenol) 650 mg TID PO Last administered on 04/10/17 09:05; Start 04/08/17 at 14:00; Stop 04/10/17 at 09:00; Status DC Piperacillin Sod/ Tazobactam Sod (Zosyn) 3.375 gm Q6HRS IVP Last administered on 04/10/17 05:37; Start 04/08/17 at 18:00 Potassium Chloride/Dextrose/ Sod Cl 1,000 ml @ 125 mls/hr Q8H IV Last administered on 04/10/17 03:47; Start 04/08/17 at 14:30 Sevoflurane (Ultane) 60 ml STK-MED ONCE IH ; Start 04/08/17 at 18:21; Stop at 18:22; Status DC Midazolam HCl (Versed) 2 mg STK-MED ONCE .ROUTE ; Start 04/08/17 at 18:21; Stop 04/08/17 at 18:22; Status DC Fentanyl Citrate (Fentanyl 2ml Vial) 100 mcg STK-MED ONCE .ROUTE ; Start at 18:21; Stop 04/08/17 at 18:22; Status DC Succinylcholine Chloride (Anectine) 200 mg STK-MED ONCE .ROUTE ; Start at 18:21; Stop 04/08/17 at 18:22; Status DC Glycopyrrolate (Robinul) 1 mg STK-MED ONCE .ROUTE ; Start 04/08/17 at 18:22; Stop 04/08/17 at 18:23; Status DC Neostigmine Methylsulfate 5 mg STK-MED ONCE .ROUTE ; Start 04/08/17 at 18:22; Stop 04/08/17 at 18:23; Status DC Rocuronium [place] (Zemuron) 50 mg STK-MED ONCE .ROUTE ; Start 04/08/17 at 18: 22; Stop 04/08/17 at 18:23; Status DC Propofol 20 ml @ As Directed STK-MED ONCE IV ; Start 04/08/17 at 18:22; Stop 04/08/17 at 18:23; Status DC Lidocaine HCl (Lidocaine Pf 2% Vial) 5 ml STK-MED ONCE .ROUTE ; Start 04/08/17 at 18:22; Stop 04/08/17 at 18:23; Status DC Dexamethasone Sodium Phosphate (Decadron) 20 mg STK-MED ONCE .ROUTE ; Start at 18:22; Stop 04/08/17 at 18:23; Status DC Ondansetron HCl (Zofran) 4 mg STK-MED ONCE .ROUTE ; Start 04/08/17 at 18:22; Stop 04/08/17 at 18:23; Status DC Bupivacaine HCl/ Epinephrine Bitart (Sensorcain-Mpf Epi 0.5%-[id number]) 30 ml STK -MED ONCE .ROUTE Last administered on 04/08/17t 19:43; Start 04/08/17 at 18: 42; Stop 04/08/17 at 18:43; Status DC Cellulose 1 each STK-MED ONCE .ROUTE ; Start 04/08/17 at 18:42; Stop 04/08/17 at 18:43; Status DC Ondansetron HCl (Zofran) 4 mg PRN Q6HRS PRN IV NAUSEA/VOMITING; Start at 19:30; Stop 04/09/17 at 19:29; Status DC Fentanyl Citrate (Fentanyl 2ml Vial) 25 mcg PRN Q5MIN PRN IV MILD PAIN; Start 04/08/17 at 19:30; Stop 04/09/17 at 19:29; Status DC Fentanyl Citrate (Fentanyl 2ml Vial) 50 mcg PRN Q5MIN PRN IV MODERATE PAIN; Start 04/08/17 at 19:30; Stop 04/09/17 at 19:29; Status DC Morphine Sulfate 1 mg PRN Q10MIN PRN IV SEVERE PAIN; Start 04/08/17 at 19:30; Stop 04/09/17 at 19:29; Status DC Ringer's Solution 1,000 ml @ 30 mls/hr Q24H IV ; Start 04/08/17 at 19:30; Stop 04/08/17 at 21:11; Status DC Lidocaine HCl (Xylocaine-Mpf 1% Vial) 2 ml 1X PRN PRN ID IV START; Start 04/08 at 19:30; Stop 04/09/17 at 19:29; Status DC Hydromorphone HCl (Dilaudid) 0.5 mg PRN Q10MIN PRN IV SEV PAIN, Second choice; Start 04/08/17 at 19:30; Stop 04/09/17 at 19:29; Status DC Prochlorperazine Edisylate (Compazine) 5 mg PACU PRN PRN IV NAUSEA, MRX1; Start 04/08/17 at 19:30; Stop 04/09/17 at 19:29; Status DC Sevoflurane (Ultane) 60 ml STK-MED ONCE IH ; Start 04/08/17 at 19:47; Stop at 19:48; Status DC Fentanyl Citrate (Fentanyl 2ml Vial) 100 mcg STK-MED ONCE .ROUTE ; Start at 20:12; Stop 04/08/17 at 20:13; Status DC Enoxaparin Sodium (Lovenox 40mg Syringe) 40 mg Q24H SQ Last administered on 09:05; Start 04/09/17 at 09:00 Sodium Chloride (Normal Saline Flush) 3 ml QSHIFT PRN IV AFTER MEDS AND BLOOD DRAWS; Start 04/08/17 at 20:15 Ringer's Solution 1,000 ml @ 100 mls/hr Q10H IV ; Start 04/08/17 at 20:12; Stop 04/08/17 at 21:11; Status DC Acetaminophen/ Hydrocodone Bitart (Lortab 5/325) 1 tab PRN Q4HRS PRN PO MILD PAIN Last administered on 04/10/17 05:38; Start 04/08/17 at 20:15 Ketorolac Tromethamine (Toradol) 30 mg PRN Q6HRS PRN IV PAIN Last administered on 04/09/17 13:18; Start 04/08/17 at 20:15; Stop 04/13/17 at 20:14 Morphine Sulfate 1 mg PRN Q1HR PRN IV PAIN; Start 04/08/17 at 20:15 Ondansetron HCl (Zofran) 4 mg PRN Q6HRS PRN IV NAUESA, 1ST CHOICE; Start 04/08 at 20:15 Acetaminophen (Tylenol) 500 mg PRN Q6HRS PRN PO MILD PAIN / TEMP; Start at 09:15 Lactobacillus Rhamnosus (Culturelle) 1 cap BID PO Last administered on 09:05; Start 04/09/17 at 21:00 Vitals/I & O Vital Sign - Last 24 Hours 04/09/17 04/09/17 04/09/17 04/09/17 10:55 11:44 12:00 16:11 Temp 98.0 97.5 98.0 97.5 Pulse 88 66 Resp 20 22 22 22 B/P (MAP) 126/68 (87) 105/65 (78) Pulse Ox 98 97 96 O2 Delivery Room Air Room Air Room Air 04/09/17 04/09/17 04/09/17 04/09/17 18:20 19:00 20:02 23:00 Temp 97.9 98.2 97.9 98.2 Pulse 68 77 Resp 20 20 20 B/P (MAP) 116/70 (85) 105/68 (80) Pulse Ox 98 95 96 O2 Delivery Room Air Room Air Room Air Room Air 04/10/17 04/10/17 04/10/17 04/10/17 00:15 03:07 05:38 06:37 Temp 97.7 97.7 Pulse 58 Resp 20 B/P (MAP) 101/57 (72) Pulse Ox 96 95 95 95 O2 Delivery Room Air Room Air Room Air Room Air 04/10/17 08:00 Temp 97.7 97.7 Pulse 57 Resp 20 B/P (MAP) 119/68 (85) Pulse Ox 98 O2 Delivery Room Air Intake and Output 04/09/17 04/09/17 04/10/17 15:00 23:00 07:00 Intake Total 500 ml 240 ml 120 ml Output Total 1400 ml 900 ml 600 ml Balance -900 ml -660 ml -480 ml KARLA JOHNSON MD Apr 10, 2017 09:59
--- NOTE | 2017-04-10 11:13 | PDOC ---
Infectious Disease Note Subjective Subjective Comfortable, denies pain Diet advanced to regular now No fever last 24 hours ROS ROS GEN: Denies chills Denies N/V/D Vital Sign Vital Signs Vital Signs Date Time Temp Pulse Resp B/P (MAP) Pulse Ox O2 Delivery O2 Flow Rate FiO2 04/10/17 08:00 97.7 57 20 119/68 (85) 98 Room Air 97.7 04/09/17 08:33 2.0 Physical Exam PHYSICAL EXAM GENERAL: Resting HEENT: OC/OP clear LUNGS: Clear HEART: S1S2, no gallop, no murmur ABD: Distended, BS active, soft, nontender EXT: No edema, no cyanosis EXTERNAL RELATIONS DIRECTOR: awake, responding appropriately SKIN: No rash Labs Lab Laboratory Tests Test 04/10/17 04:35 White Blood Count 11.8 x10^3/uL (4.0-11.0) Red Blood Count 4.07 x10^6/uL (4.30-5.70) Hemoglobin 12.6 g/dL (13.0-17.5) Hematocrit 37.4 % (39.0-53.0) Mean Corpuscular Volume 92 fL (79-100) Mean Corpuscular Hemoglobin 31 pg (25-35) Mean Corpuscular Hemoglobin Concent 34 g/dL (31-37) Red Cell Distribution Width 12.9 % (11.5-14.5) Platelet Count 176 x10^3/uL (140-400) Neutrophils (%) (Auto) 82 % (31-73) Lymphocytes (%) (Auto) 12 % (24-48) Monocytes (%) (Auto) 6 % (0-9) Eosinophils (%) (Auto) 0 % (0-3) Basophils (%) (Auto) 0 % (0-3) Neutrophils # (Auto) 9.7 x10^3uL (1.8-7.7) Lymphocytes # (Auto) 1.4 x10^3/uL (1.0-4.8) Monocytes # (Auto) 0.7 x10^3/uL (0.0-1.1) Eosinophils # (Auto) 0.0 x10^3/uL (0.0-0.7) Basophils # (Auto) 0.0 x10^3/uL (0.0-0.2) Sodium Level 138 mmol/L (136-145) Potassium Level 3.9 mmol/L (3.5-5.1) Chloride Level 104 mmol/L (98-107) Carbon Dioxide Level 27 mmol/L (21-32) Anion Gap 7 (6-14) Blood Urea Nitrogen 15 mg/dL (8-26) Creatinine 0.8 mg/dL (0.7-1.3) Estimated GFR (Cockcroft-Gault) 110.0 Glucose Level 133 mg/dL (70-99) Calcium Level 7.9 mg/dL (8.5-10.1) Micro BLOOD CULTURE Preliminary NO GROWTH AFTER 1 DAY Objective Assessment Appendicitis with perforation, s/p lap appendectomy on 04/08 Low-grade fever Leukocytosis Plan Plan of Care Zosyn Monitor WBC & temp Supportive care LAURA HESS APRN Apr 10, 2017 11:13
[2017-04-10 11:38] VITALS: BP 110/61
--- NOTE | 2017-04-10 15:55 | PDOC ---
SURGICAL PROGRESS NOTE Subjective Pt denies complaints Vital Signs Vital Signs Date Time Temp Pulse Resp B/P (MAP) Pulse Ox O2 Delivery O2 Flow Rate FiO2 04/10/17 14:38 98 Room Air 04/10/17 11:38 98.8 66 18 110/61 (77) 98.8 04/09/17 08:33 2.0 I&O Intake and Output 04/10/17 07:00 Intake Total 860 ml Output Total 2900 ml Balance -2040 ml Intake Oral 860 ml Output Urine Total 2900 ml # Voids 1 General: Alert, Oriented X3, Cooperative, No acute distress Abdomen: Soft, No tenderness Labs Laboratory Tests Test 04/09/17 04:45 04/10/17 04:35 White Blood Count 16.7 x10^3/uL (4.0-11.0) 11.8 x10^3/uL (4.0-11.0) Red Blood Count 4.81 x10^6/uL (4.30-5.70) 4.07 x10^6/uL (4.30-5.70) Hemoglobin 14.8 g/dL (13.0-17.5) 12.6 g/dL (13.0-17.5) Hematocrit 44.5 % (39.0-53.0) 37.4 % (39.0-53.0) Mean Corpuscular Volume 93 fL (79-100) 92 fL (79-100) Mean Corpuscular Hemoglobin 31 pg (25-35) 31 pg (25-35) Mean Corpuscular Hemoglobin Concent 33 g/dL (31-37) 34 g/dL (31-37) Red Cell Distribution Width 13.1 % (11.5-14.5) 12.9 % (11.5-14.5) Platelet Count 186 x10^3/uL (140-400) 176 x10^3/uL (140-400) Neutrophils (%) (Auto) 93 % (31-73) 82 % (31-73) Lymphocytes (%) (Auto) 3 % (24-48) 12 % (24-48) Monocytes (%) (Auto) 3 % (0-9) 6 % (0-9) Eosinophils (%) (Auto) 0 % (0-3) 0 % (0-3) Basophils (%) (Auto) 0 % (0-3) 0 % (0-3) Neutrophils # (Auto) 15.6 x10^3uL (1.8-7.7) 9.7 x10^3uL (1.8-7.7) Lymphocytes # (Auto) 0.5 x10^3/uL (1.0-4.8) 1.4 x10^3/uL (1.0-4.8) Monocytes # (Auto) 0.5 x10^3/uL (0.0-1.1) 0.7 x10^3/uL (0.0-1.1) Eosinophils # (Auto) 0.0 x10^3/uL (0.0-0.7) 0.0 x10^3/uL (0.0-0.7) Basophils # (Auto) 0.0 x10^3/uL (0.0-0.2) 0.0 x10^3/uL (0.0-0.2) Sodium Level 135 mmol/L (136-145) 138 mmol/L (136-145) Potassium Level 3.8 mmol/L (3.5-5.1) 3.9 mmol/L (3.5-5.1) Chloride Level 102 mmol/L (98-107) 104 mmol/L (98-107) Carbon Dioxide Level 22 mmol/L (21-32) 27 mmol/L (21-32) Anion Gap 11 (6-14) 7 (6-14) Blood Urea Nitrogen 11 mg/dL (8-26) 15 mg/dL (8-26) Creatinine 0.8 mg/dL (0.7-1.3) 0.8 mg/dL (0.7-1.3) Estimated GFR (Cockcroft-Gault) 110.0 110.0 Glucose Level 165 mg/dL (70-99) 133 mg/dL (70-99) Calcium Level 8.1 mg/dL (8.5-10.1) 7.9 mg/dL (8.5-10.1) Laboratory Tests Test 04/10/17 04:35 White Blood Count 11.8 x10^3/uL (4.0-11.0) Red Blood Count 4.07 x10^6/uL (4.30-5.70) Hemoglobin 12.6 g/dL (13.0-17.5) Hematocrit 37.4 % (39.0-53.0) Mean Corpuscular Volume 92 fL (79-100) Mean Corpuscular Hemoglobin 31 pg (25-35) Mean Corpuscular Hemoglobin Concent 34 g/dL (31-37) Red Cell Distribution Width 12.9 % (11.5-14.5) Platelet Count 176 x10^3/uL (140-400) Neutrophils (%) (Auto) 82 % (31-73) Lymphocytes (%) (Auto) 12 % (24-48) Monocytes (%) (Auto) 6 % (0-9) Eosinophils (%) (Auto) 0 % (0-3) Basophils (%) (Auto) 0 % (0-3) Neutrophils # (Auto) 9.7 x10^3uL (1.8-7.7) Lymphocytes # (Auto) 1.4 x10^3/uL (1.0-4.8) Monocytes # (Auto) 0.7 x10^3/uL (0.0-1.1) Eosinophils # (Auto) 0.0 x10^3/uL (0.0-0.7) Basophils # (Auto) 0.0 x10^3/uL (0.0-0.2) Sodium Level 138 mmol/L (136-145) Potassium Level 3.9 mmol/L (3.5-5.1) Chloride Level 104 mmol/L (98-107) Carbon Dioxide Level 27 mmol/L (21-32) Anion Gap 7 (6-14) Blood Urea Nitrogen 15 mg/dL (8-26) Creatinine 0.8 mg/dL (0.7-1.3) Estimated GFR (Cockcroft-Gault) 110.0 Glucose Level 133 mg/dL (70-99) Calcium Level 7.9 mg/dL (8.5-10.1) Problem List Problems Medical Problems: (1) Acute appendicitis with rupture Status: Acute Assessment/Plan s/p laparoscopic appendectomy ADAT cont abx, OK to change to PO d/w when cleared by others f/u in two weeks Problems: BERTHA HER MD Apr 10, 2017 15:55
[2017-04-10 17:00] VITALS: BP 125/64
[2017-04-10 19:00] VITALS: BP 142/75
[2017-04-10 23:00] VITALS: BP 141/83
[2017-04-11] MEDS: HYDROcodone/APAP 5/325MG 1 TAB TABLET PO PRN ×5 (00:06→18:08)
[2017-04-11] MEDS: PIPERACILLIN/TAZO IV Push 3.375 GM VIAL. IVP SCH ×3 (00:06→13:15)
[2017-04-11] MEDS ORDERED: INFLUENZA VAX SCREEN BY RX. MC PRN (03:00)
[2017-04-11 03:06] VITALS: BP 133/78
[2017-04-11 07:27] VITALS: BP 129/76
[2017-04-11] MEDS: LACTOBACILLUS RHAMNOSUS GG 1 CAPSULE. PO SCH ×2 (08:48→20:42)
[2017-04-11] MEDS ORDERED: FLU VACC QS2017-18 (36MOS+)/PF 0.5 ML SYRINGE. VAX IM ONE (09:00)
[2017-04-11] MEDS: ENOXAPARIN 40 MG/0.4 ML SYRINGE. SQ SCH (09:00)
--- NOTE | 2017-04-11 09:49 | PDOC ---
SURGICAL PROGRESS NOTE Subjective minimal pain tolerating diet Vital Signs Vital Signs Date Time Temp Pulse Resp B/P (MAP) Pulse Ox O2 Delivery O2 Flow Rate FiO2 04/11/17 08:51 20 98 Room Air 04/11/17 07:27 97.7 54 129/76 (93) 97.7 04/10/17 15:38 2.0 I&O Intake and Output 04/11/17 06:59 Intake Total 1320 ml Balance 1320 ml Intake Oral 1320 ml # Voids 2 General: Alert, Oriented X3, Cooperative, No acute distress Abdomen: Soft, Other (lap sites no erythema, dry) Labs Laboratory Tests Test 04/10/17 04:35 White Blood Count 11.8 x10^3/uL (4.0-11.0) Red Blood Count 4.07 x10^6/uL (4.30-5.70) Hemoglobin 12.6 g/dL (13.0-17.5) Hematocrit 37.4 % (39.0-53.0) Mean Corpuscular Volume 92 fL (79-100) Mean Corpuscular Hemoglobin 31 pg (25-35) Mean Corpuscular Hemoglobin Concent 34 g/dL (31-37) Red Cell Distribution Width 12.9 % (11.5-14.5) Platelet Count 176 x10^3/uL (140-400) Neutrophils (%) (Auto) 82 % (31-73) Lymphocytes (%) (Auto) 12 % (24-48) Monocytes (%) (Auto) 6 % (0-9) Eosinophils (%) (Auto) 0 % (0-3) Basophils (%) (Auto) 0 % (0-3) Neutrophils # (Auto) 9.7 x10^3uL (1.8-7.7) Lymphocytes # (Auto) 1.4 x10^3/uL (1.0-4.8) Monocytes # (Auto) 0.7 x10^3/uL (0.0-1.1) Eosinophils # (Auto) 0.0 x10^3/uL (0.0-0.7) Basophils # (Auto) 0.0 x10^3/uL (0.0-0.2) Sodium Level 138 mmol/L (136-145) Potassium Level 3.9 mmol/L (3.5-5.1) Chloride Level 104 mmol/L (98-107) Carbon Dioxide Level 27 mmol/L (21-32) Anion Gap 7 (6-14) Blood Urea Nitrogen 15 mg/dL (8-26) Creatinine 0.8 mg/dL (0.7-1.3) Estimated GFR (Cockcroft-Gault) 110.0 Glucose Level 133 mg/dL (70-99) Calcium Level 7.9 mg/dL (8.5-10.1) Problem List Problems Medical Problems: (1) Acute appendicitis with rupture Status: Acute Assessment/Plan s/p appy abx per ID can dc once on oral abx FU 2 weeks Problems: KARINA JACINTO CT MRI 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
[2017-04-11 10:30] VITALS: BP 114/68
--- NOTE | 2017-04-11 12:35 | PDOC ---
PROGRESS NOTES Chief Complaint Chief Complaint Acute abdominal pain Perforated appendicitis Peritonitis Sepsis History of Present Illness History of Present Illness Post op day 3 Patient was sitting in a chair Patient had eaten food Surgery wounds are clean, dry, and intact VSS Vitals Vitals Vital Signs Date Time Temp Pulse Resp B/P (MAP) Pulse Ox O2 Delivery O2 Flow Rate FiO2 04/11/17 10:30 97.9 68 18 114/68 (83) 94 Room Air 97.9 04/10/17 15:38 2.0 Physical Exam General: Alert, Oriented X3, Cooperative, No acute distress Heart: Regular rate, Normal S1, Normal S2, No murmurs Lungs: Clear Abdomen: Soft, Other (lap sites no erythema, dry) Extremities: No clubbing, No edema Skin: No rashes, No significant lesion Review of Systems Review of Systems Denies SOA Denies dysphagia Assessment and Plan Assessmemt and Plan Problems Medical Problems: (1) Acute appendicitis with rupture Status: Acute Assessment Acute abdominal pain Perforated appendicitis Peritonitis Sepsis Plan DC home when ok with surgery Continue pain management Recheck labs Continue home meds PT/OT Problems: Comment Review of Relevant I have reviewed the following items vanesa (where applicable) has been applied. Labs Laboratory Tests Test 04/10/17 04:35 White Blood Count 11.8 x10^3/uL (4.0-11.0) Red Blood Count 4.07 x10^6/uL (4.30-5.70) Hemoglobin 12.6 g/dL (13.0-17.5) Hematocrit 37.4 % (39.0-53.0) Mean Corpuscular Volume 92 fL (79-100) Mean Corpuscular Hemoglobin 31 pg (25-35) Mean Corpuscular Hemoglobin Concent 34 g/dL (31-37) Red Cell Distribution Width 12.9 % (11.5-14.5) Platelet Count 176 x10^3/uL (140-400) Neutrophils (%) (Auto) 82 % (31-73) Lymphocytes (%) (Auto) 12 % (24-48) Monocytes (%) (Auto) 6 % (0-9) Eosinophils (%) (Auto) 0 % (0-3) Basophils (%) (Auto) 0 % (0-3) Neutrophils # (Auto) 9.7 x10^3uL (1.8-7.7) Lymphocytes # (Auto) 1.4 x10^3/uL (1.0-4.8) Monocytes # (Auto) 0.7 x10^3/uL (0.0-1.1) Eosinophils # (Auto) 0.0 x10^3/uL (0.0-0.7) Basophils # (Auto) 0.0 x10^3/uL (0.0-0.2) Sodium Level 138 mmol/L (136-145) Potassium Level 3.9 mmol/L (3.5-5.1) Chloride Level 104 mmol/L (98-107) Carbon Dioxide Level 27 mmol/L (21-32) Anion Gap 7 (6-14) Blood Urea Nitrogen 15 mg/dL (8-26) Creatinine 0.8 mg/dL (0.7-1.3) Estimated GFR (Cockcroft-Gault) 110.0 Glucose Level 133 mg/dL (70-99) Calcium Level 7.9 mg/dL (8.5-10.1) Microbiology 04/08/17 Blood Culture - Preliminary, Resulted NO GROWTH AFTER 2 DAYS Medications Current Medications Famotidine (Pepcid Vial) 20 mg 1X ONCE IVP Last administered on 04/08/17 09: 00; Start 04/08/17 at 08:45; Stop 04/08/17 at 08:52; Status DC Ondansetron HCl (Zofran) 4 mg 1X ONCE IV Last administered on 04/08/17 09:01 ; Start 04/08/17 at 08:45; Stop 04/08/17 at 08:52; Status DC Ketorolac Tromethamine (Toradol) 30 mg 1X ONCE IV Last administered on 09:00; Start 04/08/17 at 08:45; Stop 04/08/17 at 08:52; Status DC Sodium Chloride 1,000 ml @ 1,000 mls/hr 1X ONCE IV Last administered on 04/08 09:00; Start 04/08/17 at 08:45; Stop 04/08/17 at 09:44; Status DC Dicyclomine HCl (Bentyl) 20 mg 1X ONCE PO Last administered on 04/08/17 09: 01; Start 04/08/17 at 08:45; Stop 04/08/17 at 08:52; Status DC Iohexol (Omnipaque 300 Mg/ml) 75 ml 1X ONCE IV Last administered on 10:08; Start 04/08/17 at 10:00; Stop 04/08/17 at 10:01; Status DC Info (Do NOT chart on this entry -- for MONITORING) 1 each PRN DAILY PRN MC SEE COMMENTS; Start 04/08/17 at 10:15; Stop 04/10/17 at 10:14; Status DC Morphine Sulfate 5 mg 1X ONCE IV Last administered on 04/08/17 11:26; Start 04/08/17 at 11:00; Stop 04/08/17 at 11:01; Status DC Piperacillin Sod/ Tazobactam Sod 3.375 gm/Dextrose 50 ml @ 100 mls/hr 1X ONCE IV ; Start 04/08/17 at 11:00; Stop 04/08/17 at 11:29; Status UNV Sodium Chloride 1,000 ml @ 125 mls/hr 1X ONCE IV Last administered on 11:28; Start 04/08/17 at 11:00; Stop 04/08/17 at 18:59; Status DC Piperacillin Sod/ Tazobactam Sod (Zosyn) 3.375 gm 1X ONCE IVP Last administered on 04/08/17 11:29; Start 04/08/17 at 11:30; Stop 04/08/17 at 11 :31; Status DC Ondansetron HCl (Zofran) 4 mg PRN Q8HRS PRN IV NAUSEA/VOMITING Last administered on 04/08/17 14:50; Start 04/08/17 at 11:30; Stop 04/08/17 at 20 :17; Status DC Morphine Sulfate 4 mg PRN Q2HR PRN IV PAIN Last administered on 04/09/17 08: 03; Start 04/08/17 at 11:30; Stop 04/09/17 at 11:29; Status DC Piperacillin Sod/ Tazobactam Sod 4.5 gm/Dextrose 100 ml @ 200 mls/hr Q8HRS IV ; Start 04/08/17 at 14:00; Status UNV Fentanyl Citrate (Fentanyl 2ml Vial) 50 mcg Q2HR PRN IV pain; Start 04/08/17 at 12:00 Ketorolac Tromethamine (Toradol) 15 mg Q6HRS PRN IV pain; Start 04/08/17 at 12 :00; Stop 04/08/17 at 20:17; Status DC Acetaminophen (Tylenol) 650 mg TID PO Last administered on 04/10/17 09:05; Start 04/08/17 at 14:00; Stop 04/10/17 at 09:00; Status DC Piperacillin Sod/ Tazobactam Sod (Zosyn) 3.375 gm Q6HRS IVP Last administered on 04/11/17 05:58; Start 04/08/17 at 18:00 Potassium Chloride/Dextrose/ Sod Cl 1,000 ml @ 125 mls/hr Q8H IV Last administered on 04/10/17 03:47; Start 04/08/17 at 14:30; Stop 04/10/17 at 15 :15; Status DC Sevoflurane (Ultane) 60 ml STK-MED ONCE IH ; Start 04/08/17 at 18:21; Stop at 18:22; Status DC Midazolam HCl (Versed) 2 mg STK-MED ONCE .ROUTE ; Start 04/08/17 at 18:21; Stop 04/08/17 at 18:22; Status DC Fentanyl Citrate (Fentanyl 2ml Vial) 100 mcg STK-MED ONCE .ROUTE ; Start at 18:21; Stop 04/08/17 at 18:22; Status DC Succinylcholine Chloride (Anectine) 200 mg STK-MED ONCE .ROUTE ; Start at 18:21; Stop 04/08/17 at 18:22; Status DC Glycopyrrolate (Robinul) 1 mg STK-MED ONCE .ROUTE ; Start 04/08/17 at 18:22; Stop 04/08/17 at 18:23; Status DC Neostigmine Methylsulfate 5 mg STK-MED ONCE .ROUTE ; Start 04/08/17 at 18:22; Stop 04/08/17 at 18:23; Status DC Rocuronium Sargent (Zemuron) 50 mg STK-MED ONCE .ROUTE ; Start 04/08/17 at 18: 22; Stop 04/08/17 at 18:23; Status DC Propofol 20 ml @ As Directed STK-MED ONCE IV ; Start 04/08/17 at 18:22; Stop 04/08/17 at 18:23; Status DC Lidocaine HCl (Lidocaine Pf 2% Vial) 5 ml STK-MED ONCE .ROUTE ; Start 04/08/17 at 18:22; Stop 04/08/17 at 18:23; Status DC Dexamethasone Sodium Phosphate (Decadron) 20 mg STK-MED ONCE .ROUTE ; Start at 18:22; Stop 04/08/17 at 18:23; Status DC Ondansetron HCl (Zofran) 4 mg STK-MED ONCE .ROUTE ; Start 04/08/17 at 18:22; Stop 04/08/17 at 18:23; Status DC Bupivacaine HCl/ Epinephrine Bitart (Sensorcain-Mpf Epi 0.5%-1:[id number]) 30 ml STK -MED ONCE .ROUTE Last administered on 04/08/17t 19:43; Start 04/08/17 at 18: 42; Stop 04/08/17 at 18:43; Status DC Cellulose 1 each STK-MED ONCE .ROUTE ; Start 04/08/17 at 18:42; Stop 04/08/17 at 18:43; Status DC Ondansetron HCl (Zofran) 4 mg PRN Q6HRS PRN IV NAUSEA/VOMITING; Start at 19:30; Stop 04/09/17 at 19:29; Status DC Fentanyl Citrate (Fentanyl 2ml Vial) 25 mcg PRN Q5MIN PRN IV MILD PAIN; Start 04/08/17 at 19:30; Stop 04/09/17 at 19:29; Status DC Fentanyl Citrate (Fentanyl 2ml Vial) 50 mcg PRN Q5MIN PRN IV MODERATE PAIN; Start 04/08/17 at 19:30; Stop 04/09/17 at 19:29; Status DC Morphine Sulfate 1 mg PRN Q10MIN PRN IV SEVERE PAIN; Start 04/08/17 at 19:30; Stop 04/09/17 at 19:29; Status DC Ringer's Solution 1,000 ml @ 30 mls/hr Q24H IV ; Start 04/08/17 at 19:30; Stop 04/08/17 at 21:11; Status DC Lidocaine HCl (Xylocaine-Mpf 1% Vial) 2 ml 1X PRN PRN ID IV START; Start 04/08 at 19:30; Stop 04/09/17 at 19:29; Status DC Hydromorphone HCl (Dilaudid) 0.5 mg PRN Q10MIN PRN IV SEV PAIN, Second choice; Start 04/08/17 at 19:30; Stop 04/09/17 at 19:29; Status DC Prochlorperazine Edisylate (Compazine) 5 mg PACU PRN PRN IV NAUSEA, MRX1; Start 04/08/17 at 19:30; Stop 04/09/17 at 19:29; Status DC Sevoflurane (Ultane) 60 ml STK-MED ONCE IH ; Start 04/08/17 at 19:47; Stop at 19:48; Status DC Fentanyl Citrate (Fentanyl 2ml Vial) 100 mcg STK-MED ONCE .ROUTE ; Start at 20:12; Stop 04/08/17 at 20:13; Status DC Enoxaparin Sodium (Lovenox 40mg Syringe) 40 mg Q24H SQ Last administered on 09:05; Start 04/09/17 at 09:00 Sodium Chloride (Normal Saline Flush) 3 ml QSHIFT PRN IV AFTER MEDS AND BLOOD DRAWS; Start 04/08/17 at 20:15 Ringer's Solution 1,000 ml @ 100 mls/hr Q10H IV ; Start 04/08/17 at 20:12; Stop 04/08/17 at 21:11; Status DC Acetaminophen/ Hydrocodone Bitart (Lortab 5/325) 1 tab PRN Q4HRS PRN PO MILD PAIN Last administered on 04/11/17 08:51; Start 04/08/17 at 20:15 Ketorolac Tromethamine (Toradol) 30 mg PRN Q6HRS PRN IV PAIN Last administered on 04/09/17 13:18; Start 04/08/17 at 20:15; Stop 04/13/17 at 20:14 Morphine Sulfate 1 mg PRN Q1HR PRN IV PAIN; Start 04/08/17 at 20:15 Ondansetron HCl (Zofran) 4 mg PRN Q6HRS PRN IV NAUESA, 1ST CHOICE; Start 04/08 at 20:15 Acetaminophen (Tylenol) 500 mg PRN Q6HRS PRN PO MILD PAIN / TEMP Last administered on 04/10/17t 22:31; Start 04/09/17 at 09:15 Lactobacillus Rhamnosus (Culturelle) 1 cap BID PO Last administered on t 08:48; Start 04/09/17 at 21:00 Influenza Virus Vaccine Quadrival (Fluarix Quad [id number] Syringe) 0.5 ml ONCE ONCE VAX IM ; Start 04/11/17 at 09:00; Stop 04/11/17 at 09:01; Status DC Info (Do NOT chart on this placeholder) 1 each PRN 1X PRN MC SEE COMMENTS; Start 04/11/17 at 03:00; Status Cancel Vitals/I & O Vital Sign - Last 24 Hours 04/10/17 04/10/17 04/10/17 04/10/17 14:38 15:38 17:00 19:00 Temp 97.5 98.1 97.5 98.1 Pulse 58 69 Resp 18 20 B/P (MAP) 125/64 (84) 142/75 (97) Pulse Ox 98 95 95 O2 Delivery Room Air Room Air Room Air O2 Flow Rate 2.0 04/10/17 04/10/17 04/10/17 04/11/17 19:40 20:08 23:00 00:06 Temp 97.9 97.9 Pulse 59 Resp 20 B/P (MAP) 141/83 (102) Pulse Ox 95 97 97 O2 Delivery Room Air Room Air Room Air Room Air 04/11/17 04/11/17 04/11/17 04/11/17 03:06 05:58 06:58 07:27 Temp 97.6 97.7 97.6 97.7 Pulse 57 54 Resp 20 18 B/P (MAP) 133/78 (96) 129/76 (93) Pulse Ox 96 96 96 98 O2 Delivery Room Air Room Air Room Air Room Air 04/11/17 04/11/17 04/11/17 08:00 08:51 10:30 Temp 97.9 97.9 Pulse 68 Resp 20 18 B/P (MAP) 114/68 (83) Pulse Ox 98 94 O2 Delivery Room Air Room Air Room Air Intake and Output 04/10/17 04/10/17 04/11/17 15:00 23:00 07:00 Intake Total 200 ml 400 ml 720 ml Balance 200 ml 400 ml 720 ml ROMEO AKERS III DO Apr 11, 2017 12:34
--- NOTE | 2017-04-11 13:18 | PDOC ---
Infectious Disease Note Subjective Subjective Comfortable, denies pain Diet advanced to regular now No fever last 24 hours ROS ROS GEN: Denies fevers, chills, sweats HEENT: Denies blurred vision, sore throat CV: Denies chest pain RESP: Denies shortness of air, cough GI: Denies n/v/d NEURO: Denies confusion, dizziness MSK: Denies weakness, joint pain/swelling Vital Sign Vital Signs Vital Signs Date Time Temp Pulse Resp B/P (MAP) Pulse Ox O2 Delivery O2 Flow Rate FiO2 04/11/17 13:14 20 94 Room Air 2.0 04/11/17 10:30 97.9 68 114/68 (83) 97.9 Physical Exam PHYSICAL EXAM GENERAL: NAD, Alert HEENT: PERRL, OC/OP NECK: Supple, no JVD, no LN LUNGS: Clear HEART: S1S2, no gallop, no murmur ABD: Soft, NT, no organomegaly, no rebound, mild tenderness around lap site, incision clean EXT: No edema, no cyanosis HOUSEHOLD ASSISTANT: Alert, oriented x 3, no focal neurologic deficit SKIN: No rash IV: ok Labs Micro BC NGTD Objective Assessment Appendicitis with perforation, s/p lap appendectomy on 04/08 Low-grade fever Leukocytosis improving Plan Plan of Care Zosyn, Monitor WBC & temp Supportive care PATRICK WALL MD Apr 11, 2017 13:18
[2017-04-11 14:30] VITALS: BP 128/80
[2017-04-11] MEDS: AMOXICILLIN/K CLAV 875/125MG TABLET. PO SCH (18:07)
[2017-04-11 19:00] VITALS: BP 139/86
[2017-04-11 23:00] VITALS: BP 134/76
[2017-04-12 03:00] VITALS: BP 127/73
[2017-04-12 05:18] LABS: BASO % 1 % (0-3); EOS % 2 % (0-3); HEMATOCRIT 47.9 % (39.0-53.0); HEMOGLOBIN 16.1 g/dL (13.0-17.5); LYMPH # 2.7 x10^3/uL (1.0-4.8); LYMPH % 37 % (24-48); MEAN CORPUSCULAR HEMOGLOBIN 31 pg (25-35); MEAN CORPUSCULAR HGB CONC 34 g/dL (31-37); MEAN CORPUSCULAR VOLUME 92 fL (79-100); MONO % 8 % (0-9); NEUT % 52 % (31-73); PLATELET COUNT 308 x10^3/uL (140-400); RED CELL DISTRIBUTION WIDTH 13.6 % (11.5-14.5); WHITE BLOOD COUNT 7.2 x10^3/uL (4.0-11.0)
[2017-04-12 05:41] LABS: CREATININE 0.8 mg/dL (0.7-1.3); POTASSIUM 4.1 mmol/L (3.5-5.1)
[2017-04-12] MEDS: HYDROcodone/APAP 5/325MG 1 TAB TABLET PO PRN ×3 (06:12→18:12)
[2017-04-12 07:00] VITALS: BP 120/67
[2017-04-12] MEDS: ENOXAPARIN 40 MG/0.4 ML SYRINGE. SQ SCH (09:11)
[2017-04-12] MEDS: LACTOBACILLUS RHAMNOSUS GG 1 CAPSULE. PO SCH (09:11)
[2017-04-12] MEDS: AMOXICILLIN/K CLAV 875/125MG TABLET. PO SCH ×2 (09:11→18:12)
--- NOTE | 2017-04-12 09:27 | PDOC ---
SURGICAL PROGRESS NOTE Subjective tolerating diet no n/v minimal pain Vital Signs Vital Signs Date Time Temp Pulse Resp B/P (MAP) Pulse Ox O2 Delivery O2 Flow Rate FiO2 04/12/17 07:00 97.7 65 18 120/67 (84) 97 Room Air 97.7 04/11/17 13:14 2.0 I&O Intake and Output 04/12/17 07:00 Intake Total 660 ml Balance 660 ml Intake Oral 660 ml # Voids 7 General: Alert, Oriented X3, Cooperative, No acute distress Abdomen: Normal bowel sounds, Soft, No tenderness Labs Laboratory Tests Test 04/12/17 04:15 White Blood Count 7.2 x10^3/uL (4.0-11.0) Red Blood Count 5.20 x10^6/uL (4.30-5.70) Hemoglobin 16.1 g/dL (13.0-17.5) Hematocrit 47.9 % (39.0-53.0) Mean Corpuscular Volume 92 fL (79-100) Mean Corpuscular Hemoglobin 31 pg (25-35) Mean Corpuscular Hemoglobin Concent 34 g/dL (31-37) Red Cell Distribution Width 13.6 % (11.5-14.5) Platelet Count 308 x10^3/uL (140-400) Neutrophils (%) (Auto) 52 % (31-73) Lymphocytes (%) (Auto) 37 % (24-48) Monocytes (%) (Auto) 8 % (0-9) Eosinophils (%) (Auto) 2 % (0-3) Basophils (%) (Auto) 1 % (0-3) Neutrophils # (Auto) 3.7 x10^3uL (1.8-7.7) Lymphocytes # (Auto) 2.7 x10^3/uL (1.0-4.8) Monocytes # (Auto) 0.6 x10^3/uL (0.0-1.1) Eosinophils # (Auto) 0.1 x10^3/uL (0.0-0.7) Basophils # (Auto) 0.0 x10^3/uL (0.0-0.2) Sodium Level 138 mmol/L (136-145) Potassium Level 4.1 mmol/L (3.5-5.1) Chloride Level 101 mmol/L (98-107) Carbon Dioxide Level 27 mmol/L (21-32) Anion Gap 10 (6-14) Blood Urea Nitrogen 15 mg/dL (8-26) Creatinine 0.8 mg/dL (0.7-1.3) Estimated GFR (Cockcroft-Gault) 110.0 Glucose Level 89 mg/dL (70-99) Calcium Level 9.0 mg/dL (8.5-10.1) Laboratory Tests Test 04/12/17 04:15 White Blood Count 7.2 x10^3/uL (4.0-11.0) Red Blood Count 5.20 x10^6/uL (4.30-5.70) Hemoglobin 16.1 g/dL (13.0-17.5) Hematocrit 47.9 % (39.0-53.0) Mean Corpuscular Volume 92 fL (79-100) Mean Corpuscular Hemoglobin 31 pg (25-35) Mean Corpuscular Hemoglobin Concent 34 g/dL (31-37) Red Cell Distribution Width 13.6 % (11.5-14.5) Platelet Count 308 x10^3/uL (140-400) Neutrophils (%) (Auto) 52 % (31-73) Lymphocytes (%) (Auto) 37 % (24-48) Monocytes (%) (Auto) 8 % (0-9) Eosinophils (%) (Auto) 2 % (0-3) Basophils (%) (Auto) 1 % (0-3) Neutrophils # (Auto) 3.7 x10^3uL (1.8-7.7) Lymphocytes # (Auto) 2.7 x10^3/uL (1.0-4.8) Monocytes # (Auto) 0.6 x10^3/uL (0.0-1.1) Eosinophils # (Auto) 0.1 x10^3/uL (0.0-0.7) Basophils # (Auto) 0.0 x10^3/uL (0.0-0.2) Sodium Level 138 mmol/L (136-145) Potassium Level 4.1 mmol/L (3.5-5.1) Chloride Level 101 mmol/L (98-107) Carbon Dioxide Level 27 mmol/L (21-32) Anion Gap 10 (6-14) Blood Urea Nitrogen 15 mg/dL (8-26) Creatinine 0.8 mg/dL (0.7-1.3) Estimated GFR (Cockcroft-Gault) 110.0 Glucose Level 89 mg/dL (70-99) Calcium Level 9.0 mg/dL (8.5-10.1) Problem List Problems Medical Problems: (1) Acute appendicitis with rupture Status: Acute Assessment/Plan s/p lap appy ok to nv home from surgical POV Problems: KARINA JACINTO APRN Apr 12, 2017 09:27
[2017-04-12 10:47] VITALS: BP 128/79
--- NOTE | 2017-04-12 12:06 | PDOC ---
Infectious Disease Note Subjective Subjective Comfortable, denies pain no f/c/n/v/d/abdo pain ROS ROS GEN: Denies fevers, chills, sweats HEENT: Denies blurred vision, sore throat CV: Denies chest pain RESP: Denies shortness of air, cough GI: Denies n/v/d NEURO: Denies confusion, dizziness MSK: Denies weakness, joint pain/swelling Vital Sign Vital Signs Vital Signs Date Time Temp Pulse Resp B/P (MAP) Pulse Ox O2 Delivery O2 Flow Rate FiO2 04/12/17 11:16 20 95 Room Air 04/12/17 10:47 97.8 80 128/79 (95) 97.8 04/11/17 13:14 2.0 Physical Exam PHYSICAL EXAM GENERAL: NAD, Alert HEENT: PERRL, OC/OP NECK: Supple, no JVD, no LN LUNGS: Clear HEART: S1S2, no gallop, no murmur ABD: Soft, NT, no organomegaly, no rebound, mild tenderness around lap site, incision clean EXT: No edema, no cyanosis AUDIT CONSULTANT: Alert, oriented x 3, no focal neurologic deficit SKIN: No rash IV: ok Labs Lab Laboratory Tests Test 04/12/17 04:15 White Blood Count 7.2 x10^3/uL (4.0-11.0) Red Blood Count 5.20 x10^6/uL (4.30-5.70) Hemoglobin 16.1 g/dL (13.0-17.5) Hematocrit 47.9 % (39.0-53.0) Mean Corpuscular Volume 92 fL (79-100) Mean Corpuscular Hemoglobin 31 pg (25-35) Mean Corpuscular Hemoglobin Concent 34 g/dL (31-37) Red Cell Distribution Width 13.6 % (11.5-14.5) Platelet Count 308 x10^3/uL (140-400) Neutrophils (%) (Auto) 52 % (31-73) Lymphocytes (%) (Auto) 37 % (24-48) Monocytes (%) (Auto) 8 % (0-9) Eosinophils (%) (Auto) 2 % (0-3) Basophils (%) (Auto) 1 % (0-3) Neutrophils # (Auto) 3.7 x10^3uL (1.8-7.7) Lymphocytes # (Auto) 2.7 x10^3/uL (1.0-4.8) Monocytes # (Auto) 0.6 x10^3/uL (0.0-1.1) Eosinophils # (Auto) 0.1 x10^3/uL (0.0-0.7) Basophils # (Auto) 0.0 x10^3/uL (0.0-0.2) Sodium Level 138 mmol/L (136-145) Potassium Level 4.1 mmol/L (3.5-5.1) Chloride Level 101 mmol/L (98-107) Carbon Dioxide Level 27 mmol/L (21-32) Anion Gap 10 (6-14) Blood Urea Nitrogen 15 mg/dL (8-26) Creatinine 0.8 mg/dL (0.7-1.3) Estimated GFR (Cockcroft-Gault) 110.0 Glucose Level 89 mg/dL (70-99) Calcium Level 9.0 mg/dL (8.5-10.1) Micro BC NGTD Objective Assessment Appendicitis with perforation, s/p lap appendectomy on 04/08 Low-grade fever Leukocytosis improving Plan Plan of Care continue augmentin for 10 more days OK to in home from ID standpoint PATRICK WALL MD Apr 12, 2017 12:06
[2017-04-12 14:59] VITALS: BP 112/76
--- NOTE | 2017-04-12 15:46 | PDOC ---
PROGRESS NOTES Chief Complaint Chief Complaint Acute abdominal pain Perforated appendicitis Peritonitis Sepsis History of Present Illness History of Present Illness Post op day 4 Patient was sitting in a chair Patient had eaten food Surgery wounds are clean, dry, and intact VSS NOT SURE IF HE HAS A PLACE TO STAY OR MONEY FOR RX Findings: dilated distal appendix, diffuse foul smelling thick fluid Complications: none Operative Note: After obtaining informed consent, patient was taken to the OR, induced under GETA, and prepped in the usual fashion. 5 mm port placed left lower quadrant and suprapubic, with a 12 port placed supraumbilical, all under laparoscopic guidance. Abdominal cavity was explored and noted to have foul smelling diffuse fluid, c/w peritonitis/infection. Appendix identified off the cecum with a viable base. General load COREY taken across the base and a vascular load taken across the mesoappendix. The ileocecal fold was divided between clips to mobilize the appendix. Appendix placed in a bag, delivered and sent to pathology for evaluation. Copious irrigation. No evidence of bleeding or other pathology. Ports removed without bleeding. Fascia repaired with 0 vicryl and skin repaired with 4 0 monocryl. Dressing applied. Patient sent to PACU in a stable condition. All counts were correct. No immediate complications. Wound class is dirty, 4. Vitals Vitals Vital Signs Date Time Temp Pulse Resp B/P (MAP) Pulse Ox O2 Delivery O2 Flow Rate FiO2 04/12/17 14:59 97.7 79 18 112/76 (88) 97 Room Air 97.7 04/11/17 13:14 2.0 Physical Exam General: Alert, Oriented X3, Cooperative, No acute distress Heart: Regular rate, Normal S1, Normal S2, No murmurs Lungs: Clear Abdomen: Normal bowel sounds, Soft, No tenderness Extremities: No clubbing, No cyanosis, No edema Skin: No rashes, No significant lesion Labs LABS Laboratory Tests Test 04/12/17 04:15 White Blood Count 7.2 x10^3/uL (4.0-11.0) Red Blood Count 5.20 x10^6/uL (4.30-5.70) Hemoglobin 16.1 g/dL (13.0-17.5) Hematocrit 47.9 % (39.0-53.0) Mean Corpuscular Volume 92 fL (79-100) Mean Corpuscular Hemoglobin 31 pg (25-35) Mean Corpuscular Hemoglobin Concent 34 g/dL (31-37) Red Cell Distribution Width 13.6 % (11.5-14.5) Platelet Count 308 x10^3/uL (140-400) Neutrophils (%) (Auto) 52 % (31-73) Lymphocytes (%) (Auto) 37 % (24-48) Monocytes (%) (Auto) 8 % (0-9) Eosinophils (%) (Auto) 2 % (0-3) Basophils (%) (Auto) 1 % (0-3) Neutrophils # (Auto) 3.7 x10^3uL (1.8-7.7) Lymphocytes # (Auto) 2.7 x10^3/uL (1.0-4.8) Monocytes # (Auto) 0.6 x10^3/uL (0.0-1.1) Eosinophils # (Auto) 0.1 x10^3/uL (0.0-0.7) Basophils # (Auto) 0.0 x10^3/uL (0.0-0.2) Sodium Level 138 mmol/L (136-145) Potassium Level 4.1 mmol/L (3.5-5.1) Chloride Level 101 mmol/L (98-107) Carbon Dioxide Level 27 mmol/L (21-32) Anion Gap 10 (6-14) Blood Urea Nitrogen 15 mg/dL (8-26) Creatinine 0.8 mg/dL (0.7-1.3) Estimated GFR (Cockcroft-Gault) 110.0 Glucose Level 89 mg/dL (70-99) Calcium Level 9.0 mg/dL (8.5-10.1) Assessment and Plan Assessmemt and Plan Problems Medical Problems: (1) Acute appendicitis with rupture Status: Acute Problems: Comment Review of Relevant I have reviewed the following items vanesa (where applicable) has been applied. Labs Laboratory Tests Test 04/12/17 04:15 White Blood Count 7.2 x10^3/uL (4.0-11.0) Red Blood Count 5.20 x10^6/uL (4.30-5.70) Hemoglobin 16.1 g/dL (13.0-17.5) Hematocrit 47.9 % (39.0-53.0) Mean Corpuscular Volume 92 fL (79-100) Mean Corpuscular Hemoglobin 31 pg (25-35) Mean Corpuscular Hemoglobin Concent 34 g/dL (31-37) Red Cell Distribution Width 13.6 % (11.5-14.5) Platelet Count 308 x10^3/uL (140-400) Neutrophils (%) (Auto) 52 % (31-73) Lymphocytes (%) (Auto) 37 % (24-48) Monocytes (%) (Auto) 8 % (0-9) Eosinophils (%) (Auto) 2 % (0-3) Basophils (%) (Auto) 1 % (0-3) Neutrophils # (Auto) 3.7 x10^3uL (1.8-7.7) Lymphocytes # (Auto) 2.7 x10^3/uL (1.0-4.8) Monocytes # (Auto) 0.6 x10^3/uL (0.0-1.1) Eosinophils # (Auto) 0.1 x10^3/uL (0.0-0.7) Basophils # (Auto) 0.0 x10^3/uL (0.0-0.2) Sodium Level 138 mmol/L (136-145) Potassium Level 4.1 mmol/L (3.5-5.1) Chloride Level 101 mmol/L (98-107) Carbon Dioxide Level 27 mmol/L (21-32) Anion Gap 10 (6-14) Blood Urea Nitrogen 15 mg/dL (8-26) Creatinine 0.8 mg/dL (0.7-1.3) Estimated GFR (Cockcroft-Gault) 110.0 Glucose Level 89 mg/dL (70-99) Calcium Level 9.0 mg/dL (8.5-10.1) Laboratory Tests Test 04/12/17 04:15 White Blood Count 7.2 x10^3/uL (4.0-11.0) Red Blood Count 5.20 x10^6/uL (4.30-5.70) Hemoglobin 16.1 g/dL (13.0-17.5) Hematocrit 47.9 % (39.0-53.0) Mean Corpuscular Volume 92 fL (79-100) Mean Corpuscular Hemoglobin 31 pg (25-35) Mean Corpuscular Hemoglobin Concent 34 g/dL (31-37) Red Cell Distribution Width 13.6 % (11.5-14.5) Platelet Count 308 x10^3/uL (140-400) Neutrophils (%) (Auto) 52 % (31-73) Lymphocytes (%) (Auto) 37 % (24-48) Monocytes (%) (Auto) 8 % (0-9) Eosinophils (%) (Auto) 2 % (0-3) Basophils (%) (Auto) 1 % (0-3) Neutrophils # (Auto) 3.7 x10^3uL (1.8-7.7) Lymphocytes # (Auto) 2.7 x10^3/uL (1.0-4.8) Monocytes # (Auto) 0.6 x10^3/uL (0.0-1.1) Eosinophils # (Auto) 0.1 x10^3/uL (0.0-0.7) Basophils # (Auto) 0.0 x10^3/uL (0.0-0.2) Sodium Level 138 mmol/L (136-145) Potassium Level 4.1 mmol/L (3.5-5.1) Chloride Level 101 mmol/L (98-107) Carbon Dioxide Level 27 mmol/L (21-32) Anion Gap 10 (6-14) Blood Urea Nitrogen 15 mg/dL (8-26) Creatinine 0.8 mg/dL (0.7-1.3) Estimated GFR (Cockcroft-Gault) 110.0 Glucose Level 89 mg/dL (70-99) Calcium Level 9.0 mg/dL (8.5-10.1) Microbiology 04/08/17 Blood Culture - Preliminary, Resulted NO GROWTH AFTER 3 DAYS Medications Current Medications Famotidine (Pepcid Vial) 20 mg 1X ONCE IVP Last administered on 04/08/17 09: 00; Start 04/08/17 at 08:45; Stop 04/08/17 at 08:52; Status DC Ondansetron HCl (Zofran) 4 mg 1X ONCE IV Last administered on 04/08/17 09:01 ; Start 04/08/17 at 08:45; Stop 04/08/17 at 08:52; Status DC Ketorolac Tromethamine (Toradol) 30 mg 1X ONCE IV Last administered on 09:00; Start 04/08/17 at 08:45; Stop 04/08/17 at 08:52; Status DC Sodium Chloride 1,000 ml @ 1,000 mls/hr 1X ONCE IV Last administered on 04/08 09:00; Start 04/08/17 at 08:45; Stop 04/08/17 at 09:44; Status DC Dicyclomine HCl (Bentyl) 20 mg 1X ONCE PO Last administered on 04/08/17 09: 01; Start 04/08/17 at 08:45; Stop 04/08/17 at 08:52; Status DC Iohexol (Omnipaque 300 Mg/ml) 75 ml 1X ONCE IV Last administered on 10:08; Start 04/08/17 at 10:00; Stop 04/08/17 at 10:01; Status DC Info (Do NOT chart on this entry -- for MONITORING) 1 each PRN DAILY PRN MC SEE COMMENTS; Start 04/08/17 at 10:15; Stop 04/10/17 at 10:14; Status DC Morphine Sulfate 5 mg 1X ONCE IV Last administered on 04/08/17 11:26; Start 04/08/17 at 11:00; Stop 04/08/17 at 11:01; Status DC Piperacillin Sod/ Tazobactam Sod 3.375 gm/Dextrose 50 ml @ 100 mls/hr 1X ONCE IV ; Start 04/08/17 at 11:00; Stop 04/08/17 at 11:29; Status UNV Sodium Chloride 1,000 ml @ 125 mls/hr 1X ONCE IV Last administered on 11:28; Start 04/08/17 at 11:00; Stop 04/08/17 at 18:59; Status DC Piperacillin Sod/ Tazobactam Sod (Zosyn) 3.375 gm 1X ONCE IVP Last administered on 04/08/17 11:29; Start 04/08/17 at 11:30; Stop 04/08/17 at 11 :31; Status DC Ondansetron HCl (Zofran) 4 mg PRN Q8HRS PRN IV NAUSEA/VOMITING Last administered on 04/08/17 14:50; Start 04/08/17 at 11:30; Stop 04/08/17 at 20 :17; Status DC Morphine Sulfate 4 mg PRN Q2HR PRN IV PAIN Last administered on 04/09/17 08: 03; Start 04/08/17 at 11:30; Stop 04/09/17 at 11:29; Status DC Piperacillin Sod/ Tazobactam Sod 4.5 gm/Dextrose 100 ml @ 200 mls/hr Q8HRS IV ; Start 04/08/17 at 14:00; Status UNV Fentanyl Citrate (Fentanyl 2ml Vial) 50 mcg Q2HR PRN IV pain; Start 04/08/17 at 12:00 Ketorolac Tromethamine (Toradol) 15 mg Q6HRS PRN IV pain; Start 04/08/17 at 12 :00; Stop 04/08/17 at 20:17; Status DC Acetaminophen (Tylenol) 650 mg TID PO Last administered on 04/10/17 09:05; Start 04/08/17 at 14:00; Stop 04/10/17 at 09:00; Status DC Piperacillin Sod/ Tazobactam Sod (Zosyn) 3.375 gm Q6HRS IVP Last administered on 04/11/17 13:15; Start 04/08/17 at 18:00; Stop 04/11/17 at 14:54; Status DC Potassium Chloride/Dextrose/ Sod Cl 1,000 ml @ 125 mls/hr Q8H IV Last administered on 04/10/17 03:47; Start 04/08/17 at 14:30; Stop 04/10/17 at 15 :15; Status DC Sevoflurane (Ultane) 60 ml STK-MED ONCE IH ; Start 04/08/17 at 18:21; Stop at 18:22; Status DC Midazolam HCl (Versed) 2 mg STK-MED ONCE .ROUTE ; Start 04/08/17 at 18:21; Stop 04/08/17 at 18:22; Status DC Fentanyl Citrate (Fentanyl 2ml Vial) 100 mcg STK-MED ONCE .ROUTE ; Start at 18:21; Stop 04/08/17 at 18:22; Status DC Succinylcholine Chloride (Anectine) 200 mg STK-MED ONCE .ROUTE ; Start at 18:21; Stop 04/08/17 at 18:22; Status DC Glycopyrrolate (Robinul) 1 mg STK-MED ONCE .ROUTE ; Start 04/08/17 at 18:22; Stop 04/08/17 at 18:23; Status DC Neostigmine Methylsulfate 5 mg STK-MED ONCE .ROUTE ; Start 04/08/17 at 18:22; Stop 04/08/17 at 18:23; Status DC Rocuronium [place] (Zemuron) 50 mg STK-MED ONCE .ROUTE ; Start 04/08/17 at 18: 22; Stop 04/08/17 at 18:23; Status DC Propofol 20 ml @ As Directed STK-MED ONCE IV ; Start 04/08/17 at 18:22; Stop 04/08/17 at 18:23; Status DC Lidocaine HCl (Lidocaine Pf 2% Vial) 5 ml STK-MED ONCE .ROUTE ; Start 04/08/17 at 18:22; Stop 04/08/17 at 18:23; Status DC Dexamethasone Sodium Phosphate (Decadron) 20 mg STK-MED ONCE .ROUTE ; Start at 18:22; Stop 04/08/17 at 18:23; Status DC Ondansetron HCl (Zofran) 4 mg STK-MED ONCE .ROUTE ; Start 04/08/17 at 18:22; Stop 04/08/17 at 18:23; Status DC Bupivacaine HCl/ Epinephrine Bitart (Sensorcain-Mpf Epi 0.5%-1:001821) 30 ml STK -MED ONCE .ROUTE Last administered on 04/08/17t 19:43; Start 04/08/17 at 18: 42; Stop 04/08/17 at 18:43; Status DC Cellulose 1 each STK-MED ONCE .ROUTE ; Start 04/08/17 at 18:42; Stop 04/08/17 at 18:43; Status DC Ondansetron HCl (Zofran) 4 mg PRN Q6HRS PRN IV NAUSEA/VOMITING; Start at 19:30; Stop 04/09/17 at 19:29; Status DC Fentanyl Citrate (Fentanyl 2ml Vial) 25 mcg PRN Q5MIN PRN IV MILD PAIN; Start 04/08/17 at 19:30; Stop 04/09/17 at 19:29; Status DC Fentanyl Citrate (Fentanyl 2ml Vial) 50 mcg PRN Q5MIN PRN IV MODERATE PAIN; Start 04/08/17 at 19:30; Stop 04/09/17 at 19:29; Status DC Morphine Sulfate 1 mg PRN Q10MIN PRN IV SEVERE PAIN; Start 04/08/17 at 19:30; Stop 04/09/17 at 19:29; Status DC Ringer's Solution 1,000 ml @ 30 mls/hr Q24H IV ; Start 04/08/17 at 19:30; Stop 04/08/17 at 21:11; Status DC Lidocaine HCl (Xylocaine-Mpf 1% Vial) 2 ml 1X PRN PRN ID IV START; Start 04/08 at 19:30; Stop 04/09/17 at 19:29; Status DC Hydromorphone HCl (Dilaudid) 0.5 mg PRN Q10MIN PRN IV SEV PAIN, Second choice; Start 04/08/17 at 19:30; Stop 04/09/17 at 19:29; Status DC Prochlorperazine Edisylate (Compazine) 5 mg PACU PRN PRN IV NAUSEA, MRX1; Start 04/08/17 at 19:30; Stop 04/09/17 at 19:29; Status DC Sevoflurane (Ultane) 60 ml STK-MED ONCE IH ; Start 04/08/17 at 19:47; Stop at 19:48; Status DC Fentanyl Citrate (Fentanyl 2ml Vial) 100 mcg STK-MED ONCE .ROUTE ; Start at 20:12; Stop 04/08/17 at 20:13; Status DC Enoxaparin Sodium (Lovenox 40mg Syringe) 40 mg Q24H SQ Last administered on t 09:11; Start 04/09/17 at 09:00 Sodium Chloride (Normal Saline Flush) 3 ml QSHIFT PRN IV AFTER MEDS AND BLOOD DRAWS; Start 04/08/17 at 20:15 Ringer's Solution 1,000 ml @ 100 mls/hr Q10H IV ; Start 04/08/17 at 20:12; Stop 04/08/17 at 21:11; Status DC Acetaminophen/ Hydrocodone Bitart (Lortab 5/325) 1 tab PRN Q4HRS PRN PO MILD PAIN Last administered on 04/12/17 11:16; Start 04/08/17 at 20:15 Ketorolac Tromethamine (Toradol) 30 mg PRN Q6HRS PRN IV PAIN Last administered on 04/09/17 13:18; Start 04/08/17 at 20:15; Stop 04/13/17 at 20:14 Morphine Sulfate 1 mg PRN Q1HR PRN IV PAIN; Start 04/08/17 at 20:15 Ondansetron HCl (Zofran) 4 mg PRN Q6HRS PRN IV NAUESA, 1ST CHOICE; Start 04/08 at 20:15 Acetaminophen (Tylenol) 500 mg PRN Q6HRS PRN PO MILD PAIN / TEMP Last administered on 04/10/17 22:31; Start 04/09/17 at 09:15 Lactobacillus Rhamnosus (Culturelle) 1 cap BID PO Last administered on 09:11; Start 04/09/17 at 21:00 Influenza Virus Vaccine Quadrival (Fluarix Quad [id number] Syringe) 0.5 ml ONCE ONCE VAX IM Last administered on 04/11/17 13:02; Start 04/11/17 at 09:00; Stop 04/11/17 at 09:01; Status DC Info (Do NOT chart on this placeholder) 1 each PRN 1X PRN MC SEE COMMENTS; Start 04/11/17 at 03:00; Status Cancel Amoxicillin/ Clavulanate Potassium (Augmentin 875/ 125mg) 1 tab BID PO Last administered on 04/12/17 09:11; Start 04/11/17 at 18:00 Vitals/I & O Vital Sign - Last 24 Hours 04/11/17 04/11/17 04/11/17 04/11/17 18:08 19:00 20:00 23:00 Temp 97.7 97.7 97.7 97.7 Pulse 67 57 Resp 20 18 18 B/P (MAP) 139/86 (103) 134/76 (95) Pulse Ox 97 97 O2 Delivery Room Air Room Air Room Air Room Air 04/12/17 04/12/17 04/12/17 04/12/17 03:00 07:00 07:12 08:00 Temp 98.7 97.7 98.7 97.7 Pulse 60 65 Resp 18 18 18 B/P (MAP) 127/73 (91) 120/67 (84) Pulse Ox 95 97 95 O2 Delivery Room Air Room Air Room Air Room Air 04/12/17 04/12/17 04/12/17 10:47 11:16 14:59 Temp 97.8 97.7 97.8 97.7 Pulse 80 79 Resp 18 20 18 B/P (MAP) 128/79 (95) 112/76 (88) Pulse Ox 95 95 97 O2 Delivery Room Air Room Air Room Air Intake and Output 04/11/17 04/11/17 04/12/17 15:00 23:00 07:00 Intake Total 360 ml 300 ml 0 ml Balance 360 ml 300 ml 0 ml OLIVER BARAJAS MD Apr 12, 2017 15:46
[2017-04-12] MEDS ORDERED: AMOX1TAB61 PO (17:16)
--- NOTE | 2017-04-13 00:02 | PATHOLOGY ---
PATHOLOGY REPORT * * * * * * * * FINAL DIAGNOSIS: Appendix, laparoscopic appendectomy: - Acute suppurative appendicitis with focal perforation. COMMENT: There is no evidence of malignancy. (JPM:pit; 04/12/2017) REPORT ELECTRONICALLY SIGNED BY: Avtar Charles M.D. DATE/TIME: 04/12/2017 14:57 * * * * * * * * GROSS PATHOLOGY: Received in formalin labeled "Karyna Garcia and appendix," is an appendix measuring 8.5 cm in length and ranging from 0.7 up to 3.0 cm in diameter (the distal aspect is dilated) with abundant amount of attached mesoappendix. The proximal resection margin is closed by a linear staple line measuring 1.8 cm in length and up to 0.2 cm in width (inked black). The serosal surface is covered by jha-white exudate and a possible perforation 0.8 x 0.4 cm that is 2.2 cm from the closest distal (mesoappendix) and 6.5 cm from the proximal resection margin. Sectioning reveals the proximal to mid fibrosed and the distal dilated lumen filled with saab-brown friable fecal material with the attached distal mesoappendix homogeneous pale green. No discrete fecalith or masses identified. Grease Monkey sections are submitted in three cassettes as follows: A1 proximal resection margin (inked black) and proximal to mid appendix A2 possible perforation A3-4 distal appendix with attached mesoappendix (SWS; 04/11/2017) INITIAL CPT CODE(S): A; 13904 Professional services performed by [facility] at [address] [address] Technical services performed by [facility] at [address] [place] [address] [address] [address]. SPECIMEN(S) RECEIVED: A.Appendix CLINICAL HISTORY: Acute ruptured appendicitis PATIENT: KARYNA GARCIA /AGE: 711/05/1980 (Age: 36) PATIENT #: [id number] ALT CASE #: SPECIMEN COLLECTION DATE: 04/08/2017 SPECIMEN RECEIVED DATE: 04/11/2017 [facility] - [address] [place] [address] - PHONE: [phone] * * * END OF REPORT * * *
--- NOTE | 2017-04-21 17:19 | DS ---
DATE OF DISCHARGE: 04/12/2017 ADMISSION DIAGNOSIS: Appendicitis. DISCHARGE DIAGNOSIS: Postop laparoscopic appendectomy. HOSPITAL COURSE: The patient is a pleasant middle-aged male, who presented with ruptured appendicitis. He was admitted. We consulted General Surgery, gave him antibiotics and fluids. He was taken to surgery for laparoscopic appendectomy. Post-procedure did well, discharged home. DISPOSITION: Home. ACTIVITY: As tolerated. DIET: Low sodium. MEDICATIONS: Please see MRAD. TOTAL TIME: 34 minutes. ROMEO AKERS DO DR: GUERLINE/rodriguez JOB#: [id number] / [id number]
== END 2017-04-12 18:36 | disposition home or self-care (01) | DRG 853 ==
LOC: ER 08:16 → 1 WEST ICU 11:20 → 5 NORTH 04-09 15:10
PROVIDERS: ADMIT Internal Medicine; ATTEND Internal Medicine
PROC: 0DTJ4ZZ Resection of Appendix, Percutaneous Endoscopic Approach (ICD-10-PCS; principal; 2017-04-08 19:00)
DX: A41.9 Sepsis, unspecified organism (principal); K35.2 Acute appendicitis with generalized peritonitis; K38.1 Appendicular concretions
CPT/HCPCS: 36415; 74177; 80048; 80053; 80307; 81001; 83605; 83690; 85007; 85025; 87040; 87641; 88304; 90686; 96361; 96374; 96375; G0480; J0330; J1100; J1650; J1885; J2250; J2270; J2405; J2543; J2704; J2710; J3010; J3490; J7030; J7120; Q9967; S0028; 99285-25; G0479; J2001